=== PATIENT | female | born 1975 | race African-American/Black ===

== ENCOUNTER 2016-07-15 09:33 | Inpatient (IN) | payer OTHER ==
[~2016-07-15] VITALS: Ht 167.6 cm; Wt 111.8 kg
[~2016-07-15 09:33] MED LIST: ABILIFY5 M1 PO; LEXAPRO10 M1 PO
--- NOTE | 2016-07-15 09:37 | NUR ---
PT NELSON FROM IOP FOR +SI. PT STATES WEDNESDAY SHE DROVE HERSELF TO A HOTEL AND WANTED TO KILL HERSELF WITH A KNIFE. PT STATES SHE DID NOT BUY THE KNIFE. PT DENIES HI, DRUG OR ETOH USE. PT CURRENTLY ON DEPRESSION MEDS FOR THE PAST 5 YEARS. PT WANDED BY SECURITY PLACED IN PAPER SCRUBS. SITTER AT DOOR.
--- NOTE | 2016-07-15 09:58 | ED MVC/FALL/TRAUMA COMPLAINT ---
History of Present Illness General Chief Complaint: Psychiatric Related Complaint Stated Complaint: BIBA PSYCH EVAL Vital Signs & Intake/Output Vital Signs & Intake/Output Vital Signs Date Time Temp Pulse Resp B/P Pulse O2 O2 Flow FiO2 Ox Delivery Rate 07/15 953 98.3 95 22 113/71 96 Room Air 07/15 936 97 Allergies Coded Allergies: NO KNOWN ALLERGIES (07/15/16) Reconcile Medications Aripiprazole (Abilify) 5 MG TABLET 1 TAB PO DAILY depression Escitalopram Oxalate (Lexapro) 10 MG TABLET 1 TAB PO DAILY depression Triage Note: PT BIBA FROM [facility] FOR +SI. PT STATES WEDNESDAY SHE DROVE HERSELF TO A HOTEL AND WANTED TO KILL HERSELF WITH A KNIFE. PT STATES SHE DID NOT BUY THE KNIFE. PT DENIES HI, DRUG OR ETOH USE. PT CURRENTLY ON DEPRESSION MEDS FOR THE PAST 5 YEARS. PT WANDED BY SECURITY PLACED IN PAPER SCRUBS. SITTER AT DOOR : No Patient currently breastfeeds: No Past History Travel History Traveled to [place] past 21 day No Medical History Psychiatric: depression Surgical History Surgical History: SEE BELOW Psychosocial History Who do you live with Friend What is your primary language Kinyarwanda Tobacco Use: Current Daily Use Daily Tobacco Use Amount/Type: => 5 Cigarettes daily ETOH Use: denies use Illicit Drug Use: denies illicit drug use Progress Plan of Care: Orders Procedure Date/time Status URINE DRUGS OF ABUSE 07/15 936 Active ETHANOL 07/15 936 Active COMPREHENSIVE METABOLIC PANEL 07/15 936 Active CBC WITHOUT DIFFERENTIAL 07/15 936 Active Departure Departure Condition: Stable Referrals: PATIENT HAS NO PRIMARY CARE DR (PCP/Family) Departure Forms: Customer Survey General Discharge Information
--- NOTE | 2016-07-15 10:02 | ED PSYCHIATRIC COMPLAINT ---
History of Present Illness General Chief Complaint: Psychiatric Related Complaint Stated Complaint: BIBA PSYCH EVAL Source: patient Exam Limitations: no limitations Allergies Coded Allergies: NO KNOWN ALLERGIES (07/15/16) Triage Note: PT BIBA FROM [facility] FOR +SI. PT STATES WEDNESDAY SHE DROVE HERSELF TO A HOTEL AND WANTED TO KILL HERSELF WITH A KNIFE. PT STATES SHE DID NOT BUY THE KNIFE. PT DENIES HI, DRUG OR ETOH USE. PT CURRENTLY ON DEPRESSION MEDS FOR THE PAST 5 YEARS. PT WANDED BY SECURITY PLACED IN PAPER SCRUBS. SITTER AT DOOR Triage Nurses Notes Reviewed? yes : No Patient currently breastfeeds: No HPI: This patient is a 40 year old female with a past medical history including depression who presented for evaluation of suicidal ideation. She reported that she started feeling suicidal when her menses began on 07/09/16. She reported that she has had thoughts of "slitting my wrists." She reported that she has attempted suicide this way in the past. She denied any HI. She denied any alcohol or illicit drug use. She patient reported she currently has bronchitis being treated with Amoxicillin. She denied any chest pain, abdominal pain, fevers, chills, or any other associated symptoms. (DEEP MARIANO,MATHIEU) Vital Signs & Intake/Output Vital Signs & Intake/Output Vital Signs Date Time Temp Pulse Resp B/P Pulse O2 O2 Flow FiO2 Ox Delivery Rate 07/17 0731 96.0 72 122/72 07/16 1159 79 145/76 07/16 0852 96.9 73 136/72 Reconcile Medications Albuterol Sulfate (Proair Hfa) 90 MCG HFA.AER.AD SHORTNESS OF BREATH (Reported) Albuterol Sulfate (Proair Hfa) 90 MCG HFA.AER.AD 2 PUF INH Q4 HRS NEEDED PRN SHORTNESS OF BREATH (Reported) Amoxicillin 875 MG TABLET 1 TAB PO BID ANTIBIOTIC, INFECTION (Reported) Aripiprazole (Abilify) 10 MG TABLET 1 TAB PO DAILY MENTAL HEALTH (Reported) Escitalopram Oxalate 20 MG TABLET 1 TAB PO DAILY MENTAL HEALTH (Reported) (BRETT JOSE,ANDREA) Past History Travel History Traveled to [place] past 21 day No Medical History Any Pertinent Medical History? see below for history Psychiatric: depression Surgical History Surgical History: SEE BELOW Psychosocial History Who do you live with Friend What is your primary language Chinese Tobacco Use: Current Daily Use Daily Tobacco Use Amount/Type: => 5 Cigarettes daily ETOH Use: denies use Illicit Drug Use: denies illicit drug use Family History Hx Contributory? No (MATHIEU ADAME PA-C) Review of Systems Review of Systems Constitutional: Reports: no symptoms. EENTM: Reports: no symptoms. Respiratory: Reports: see HPI. Cardiovascular: Reports: no symptoms. GI: Reports: no symptoms. Genitourinary: Reports: no symptoms. Musculoskeletal: Reports: no symptoms. Skin: Reports: no symptoms. Neurological/Psychological: Reports: see HPI. 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 Neck: Supple Back: Normal gait Cardiovascular: Regular rate and rhythm with no murmurs, rubs, gallops Respiratory: Scattered wheezes in the lung apices. No rhonchi or rales Extremity: Normal and equal pulses Neuro: Alert oriented x3, cranial nerves II through XII grossly intact. Skin: No appreciable rash on exposed skin, skin is warm and dry. Psych: Mood and affect is flat SAD PERSONS Done? yes (MATHIEU ADAME PA-C) Progress Differential Diagnosis: drug intoxication, drug overdose, drug withdrawal, electrolyte abnormality, encephalitis, hypothyroidism, major depressive disorder (MATHIEU ADAME PA-C) Plan of Care: Orders Procedure Date/time Status INIT HSP (30 MIN) 07/16 UNK Complete Current Medications Sig/Fatmata Start time Last Medication Dose Stop Time Status Admin Acetaminophen 650 MG Q6P PRN 07/15 1615 AC (Tylenol) Al Hydroxide/Mg 30 ML Q4-6 PRN PRN 07/15 1615 AC Hydroxide (Maalox Plus) Albuterol Sulfate 2 PUF Q6P PRN 07/15 1615 AC (Ventolin) Guaifenesin/ 10 ML Q6P PRN 07/15 1615 AC Dextromethorphan (Robitussin Dm) Magnesium Hydroxide 30 ML AT BEDTIME PRN 07/15 1615 AC (Milk Of Magnesia) Departure Departure Disposition: STILL A PATIENT Condition: Stable Clinical Impression Primary Impression: Depression Qualifiers: Depression Type: unspecified Qualified Code: F32.9 - Major depressive disorder, single episode, unspecified Referrals: PATIENT HAS NO PRIMARY CARE DR Departure Forms: Customer Survey General Discharge Information Psych Admission Note Psychiatric Admission: I have seen and evaluated GABRIELA CHOWDHURY. I have also reviewed all the pertinent lab results and diagnostic results. GABRIELA CHOWDHURY will be admitted to our inpatient Psychiatric unit for treatment and care. (MATHIEU ADAME PA-C) PA/INDUSTRIAL PSYCHOLOGY PROFESSOR Co-Sign Statement Statement: ED Attending supervision documentation- x I saw and evaluated the patient. I have also reviewed all the pertinent lab results and diagnostic results. I agree with the findings and the plan of care as documented in the PA's/INDUSTRIAL PSYCHOLOGY PROFESSOR's documentation. [] I have reviewed the ED Record and agree with the PA's/INDUSTRIAL PSYCHOLOGY PROFESSOR's documentation. [] Additions or exceptions (if any) to the PAs/INDUSTRIAL PSYCHOLOGY PROFESSOR's note and plan are summarized below: [] (ANDREA WEST MD) GABRIELA CHOWDHURY will be admitted to our inpatient Psychiatric unit for treatment and care. (MATHIEU ADAME PA-C) PA/INDUSTRIAL PSYCHOLOGY PROFESSOR Co-Sign Statement Statement: ED Attending supervision documentation- x I saw and evaluated the patient. I have also reviewed all the pertinent lab results and diagnostic results. I agree with the findings and the plan of care as documented in the PA's/INDUSTRIAL PSYCHOLOGY PROFESSOR's documentation. [] I have reviewed the ED Record and agree with the PA's/INDUSTRIAL PSYCHOLOGY PROFESSOR's documentation. [] Additions or exceptions (if any) to the PAs/INDUSTRIAL PSYCHOLOGY PROFESSOR's note and plan are summarized below: [] (ANDREA WEST MD)
--- NOTE | 2016-07-15 10:25 | NUR ---
URINE TRIO SENT
--- NOTE | 2016-07-15 10:31 | ED PSY CRISIS COLLATERAL NOTE ---
Collateral Note Collateral Note Family/Inform/Alfredito Contacts: The following was written by Out pt clinician Kimberly Duran LCSW: I'm sending Aranza Pederson is 40yo AA female, Dx MDD (think maybe Bipolar?) to the ED, she had a serious plan to kill herself in hotel room on Thursday 07/13 was going to buy a knife. She didn't make attempt. She is very depressed, suicidal. 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 She stated immediate trigger to SI and plan was --- "I lost a poetry reading competition at the [employer] on Wednesday." She is impulsive and has prior attempts none since 2006. Aranza has Bronchitis - and she is taking amoxicillin since . 07/09. She is on Lexapro 20mg and Abilify 10mg. She saw Lopez Adames APRN 2x since started at [facility] 2015. Lopez Adames APRN called crisis as well and reported the following: He informed that he has met with pt 2x so far. She has a hx of MDD but are considering the possibility that she may have a dx of Bipolar given her impulsive hx. Pt impulsively recently moved to [place] from [place]. She was off her meds when she arrived. Lopez started her on new meds and pt discontinued the meds on her own because she wanted to get back on her old meds. 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 She has some cluster B traits as at times she presents superficially. He also reported the same as Kimberly noted above.
[2016-07-15 10:47] LABS: ABSOLUTE BASOPHIL COUNT 0.1 /CUMM (0.0-0.2); ABSOLUTE EOSINOPHIL COUNT 0.2 /CUMM (0.0-0.7); ABSOLUTE GRANULOCYTE CT 3.4 /CUMM (1.4-6.5); ABSOLUTE LYMPH COUNT 3.2 /CUMM (1.2-3.4); ABSOLUTE MONOCYTE COUNT 0.4 /CUMM (0.10-0.60); BASOPHIL % 0.9 % (0.0-2.0); EOSINOPHIL % 2.3 % (0-5); GRANULOCYTE % 47.1 % (42.2-75.2); HEMATOCRIT 36.2 % (37-47); MEAN CORPUSCULAR HGB 25.1 PG (27.0-31.0); MEAN CORPUSCULAR HGB CONC 32.6 G/DL (33.0-37.0); MEAN CORPUSCULAR VOLUME 77.1 FL (81.0-99.0); MEAN PLATELET VOLUME 7.9 FL (7.4-10.4); PLATELET COUNT 253 /CUMM (130-400); RBC DISTRIBUTION WIDTH 17.8 % (11.5-14.5); RED BLOOD CELL CT 4.69 /CUMM (4.20-5.40); WHITE BLOOD CELL COUNT 7.3 /CUMM (4.8-10.8)
--- NOTE | 2016-07-15 12:30 | NUR ---
SLEEPING, RR WNL.
[2016-07-15] MEDS ORDERED: ESCITALOPRAM OX20 MG PO (12:45)
[2016-07-15] MEDS ORDERED: ABILIFY10 M1 PO (12:45)
[2016-07-15] MEDS ORDERED: AMOXICILLIN875 M1 PO (12:46)
--- NOTE | 2016-07-15 13:05 | NUR ---
SITTING UP, EATING LUNCH. AWAITING CRISIS. Informed waiting has been performed.
--- NOTE | 2016-07-15 14:30 | NUR ---
CONTINUES TO AWAIT CRISIS EVAL. Informed waiting has been performed.
--- NOTE | 2016-07-15 15:12 | NUR ---
THIS RN NOW ASSUMING CARE OF PT.
--- NOTE | 2016-07-15 15:51 | ED PSYCH CRISIS CONSULTATION ---
Crisis Consult Basic Assessment Date of Consult: 07/15/16 Responsible Person/Accompanied By: self Insurance Authorization: Insurance #1: Insurance name: PHYLLIS Aguilar C&A Phone number: Policy number: [id number] Group number: Authorization number: ED Provider: Patient's ED Provider: MATHIEU ADAME PA-C Primary Care Physician: Patient's PCP: BASIL FRIEDMAN MD PCP's Current Psychiatrist: Lopez Adames APRN Chief Complaint: Psychiatric Related Complaint Patient's Quote: "I was thinking about killing myself for the 9th, 10th, or 11th try." Present Illness: Pt is a 40yo female who was sent from out pt due to SI with plan to cut her wrists. Pt expresses that she has been struggling with Depression for the past 20 years. She reports that she has mad 9-11 suicide attempts by cutting het wrists, overdoses and putting a plastic bag over her head. Pt also reports a hx of multiple inpt psych admits with the most recent at [facility] in 2008. Pt identifies that her depression started increasing last week when she got her period. 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 Additionally, pt was very upset about loosing a poetry contest. She expressed that she used to be very good at poetry and no feels like she is no good at it. Pt reports that she has been so depressed that she has found it very difficult to function at work or even to get out of bed to get herself to go to work. Pt reports that her depression became so overwhelming on Wednesday that she went to a hotel and was going to get a knife to cut her wrists. Pt says that she has not been able to stop thinking about cutting her wrist since Wednesday, so she is reaching out for help because she does not want to have the intrusive suicidal thoughts anymore.Pt denies any HI or sx of psychosis. Pt reports that she sometimes has aggressive thoughts where she imagines having agreements with people. Pt reports increase in irritability, depressed mood, low energy, low motivation, and loss in interest in things that she used to enjoy. Pt reports that her sleep and appetite are fine. Pt presents as depressed and mildly irritable, articulate, and a witty/dry/sarcastic sense of humor. Pt expresses her motivation to want to feel better and would like to be admitted to [facility]. case reviewed with Dr. Brown of Psychiatry and pt will be admitted to [facility]. Patient's Address: [address] [place] [address] Other Phone Number: Who Do You Live With? Friend Family/Informants Interviewed: Lopez Adames and Kimberly Duran see collateral note Allergies - Coded Allergies: NO KNOWN ALLERGIES (07/15/16) Current Medications - Scheduled Medications Amoxicillin 875 MG TABLET 1 TAB PO BID ANTIBIOTIC, INFECTION #20 (Reported) Entered as Reported by JAKE SOTO on 07/15/16 1246 Aripiprazole (Abilify) 10 MG TABLET 1 TAB PO DAILY MENTAL HEALTH #10 ( Reported) Entered as Reported by JAKE SOTO on 07/15/16 1245 Escitalopram Oxalate 20 MG TABLET 1 TAB PO DAILY MENTAL HEALTH #30 (Reported) Entered as Reported by JAKE SOTO on 07/15/16 1245 Laboratory Results: Laboratory Tests 07/15/16 1033: Hemoglobin A1c Pending 07/15/16 1033: Anion Gap 9, Estimated GFR > 60, BUN/Creatinine Ratio 11.1, Glucose 135 H, Calcium 9.1, Total Bilirubin 0.4, AST 28, ALT 42, Alkaline Phosphatase 80, Total Protein 7.7, Albumin 4.0, Globulin 3.7, Albumin/Globulin Ratio 1.1, Triglycerides Pending, Cholesterol Pending, LDL Cholesterol, Calc Pending, HDL Cholesterol Pending, Cholesterol/HDL Ratio Pending, TSH Pending, CBC w Diff NO MAN DIFF REQ, RBC 4.69, MCV 77.1 L, MCH 25.1 L, RDW 17.8 H, MPV 7.9, Gran % 47.1, Lymphocytes % 43.5, Monocytes % 6.2, Eosinophils % 2.3, Basophils % 0.9, Absolute Granulocytes 3.4, Absolute Lymphocytes 3.2, Absolute Monocytes 0.4, Absolute Eosinophils 0.2, Absolute Basophils 0.1, PUBS MCHC 32.6 L, Serum Alcohol < 10.0 07/15/16 1025: Urine Opiates Screen < 100.00, Methadone Screen 64, Barbiturate Screen < 60, Ur Phencyclidine Scrn < 6.00, Amphetamines Screen < 100, U Benzodiazepines Scrn < 85, Urine Cocaine Screen < 50, Urine Cannabis Screen > 80.00 H Past History Past Medical History Psychiatric: depression Past Surgical History Surgical History: SEE BELOW Psychosocial History 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, engaging, participates in out pt tx, expressive Physical Limitations (Interventions): none reported Psychiatric Treatment History Psych Treatment Psychiatric Treatment Yes Inpatient Treatment Yes Outpatient Treatment Yes Location of Treatment Multiple, most reccent inpt was [facility] 2008, currently out pt Brian Reason for Treatment Depression Dates of Treatment multiple to current Response to Treatment variable Diagnosis by History: Depression, R/O bipolar, cluster B traits Substance Use/Abuse History Drug Use/Abuse 1 Substances Used/Abused Yes Substance Used/Abused Marijuana First Use age 17 Last Used today How much used/taken unknown How often few times a week For how long since age 17 Route of use smoke Drug Use/Abuse 2 Substances Used/Abused Yes Substance Used/Abused Alcohol First Use age 17 Last Used 2 days ago How much used/taken 1 mixed drink How often "not often" For how long sporadically since age 17 Route of use po Substance Abuse Treatment Substance Abuse Treatment Past Substance Abuse TX Yes Inpatient Treatment No Outpatient Treatment Yes Location of Treatment AA Reason for Treatment alcohol use Dates of Treatment over 10 years ago Response to Treatment good Current Mental Status Mental Status Orientation: Person, Place, Situation Affect: Broad, Depressed, Hopeless, Sad, Variable Speech: WNL Neuro-vegetative: Anhedonia, Concentration Poor, Energy Decreased, Helpless, Loss of Interest Appearance Appearance- Dress/Hygiene: well groomed, good eye contact Behaviors Thought Process: WNL Thought Content: WNL Memory: WNL Insight: WNL SI/HI Risk Assessment Past Suicidal Ideation/Attempts Yes Current Suicidal Ideation/Att Yes Past Homicidal Ideation/Att: No Current Homicidal Ideation/Attempts No Degree of Intent: Made Preparations, Plan Danger To: Self Gravely Disabled: Poor Impulse Control Risk Factors: access to lethal means, high anxiety/distress, history of suicide atmpts, SA/MH hospitalized, substance abuse, poor impulse control, limited support Lethality Ratin PTSD Checklist PTSD Done? patient declined ED Management Sitter: Yes Restraints: No DSM5/PS Stressors/Medical Prob Diagnosis' (DSM 5, Stressors, Medical): Unspecified Depression f32.9, Cannabis use d/o f12.20 Current GAF: 25 Comments: axis 2: cluster b traits axis 3: Bronchitis axis 4: social, family, and work stressors Departure Disposition Psych Medical Clearance Date: 07/15/16 Medically Cleared at: 1515 Time Started: 151 Time Ended: 1544 Psychiatrist Consulted: Elio Brown MD Date Disposition Established: 07/15/16 Time Disposition Established: 1544 Plan for Disposition - Modality: Inpatient Psychiatry Facility: [facility] Rationale for Disposition: safety and stabilization of sx Type of IP Admission: Voluntary Referrals BASIL FRIEDMAN MD (PCP/Family)
--- NOTE | 2016-07-15 16:17 | NUR ---
REPORT GIVEN TO GIRMA ON [facility].
--- NOTE | 2016-07-15 17:11 | NUR ---
PAPER WORK READY. DISTRIBUTION CALLED FOR TRANSPORT TO [facility].
--- NOTE | 2016-07-15 17:19 | NUR ---
1 VALUABLE BAG, 2 BELONGINGS BAG, NANDO HARPER, SECURITY AND TRANSPORT WITH PT TO [facility].
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
[2016-07-15 17:33] VITALS: BP 124/74
[2016-07-15] MEDS ORDERED: PROAIR HFA8.5 GM (18:56)
[2016-07-15] MEDS ORDERED: PROAIR HFA8.5 GM INH (18:58)
[2016-07-15 20:17] VITALS: BP 131/73
--- NOTE | 2016-07-15 21:10 | NUR ---
PT ADMITTED TO CPS FOR DEPRESSION WITH SI. PT PRESENTED WITH DEPRESSED AND IRRITABLE MOOD. AFFECT CONSTRICTED. BEHAVIOR COOPERATIVE. DURING INTERVIEW, PT ADMITTED TO SI, BUT DENIED PLAN TO ACT WHILE ON UNIT. SHE REPORTED SHE FEELS SAFE AND AGREED TO REPORT TO STAFF IF THOUGHTS BECOME OVERWHELMING OR BEGINS TO CONSIDER A PLAN. PT DENIED HI AND ALL HALLUCINATIONS. PT REPORTED THAT SHE RECENTLY HAS COME TO REALIZE THAT "EVERY MONTH" AROUND HER MENSES, SHE BECOMES "SUICIDAL." SHE HAS NOT YET DISCUSSED THIS WITH HER DOCTORS. MEDICAL HX INCLUDES GALL BLADDER REMOVAL IN 2014. PT CURRENTLY BEING TREATED FOR ACUTE BRONCHITIS. NO RESPIRATORY DISTRESS. VSS. NO SOMATIC C/O.
--- NOTE | 2016-07-16 04:15 | NUR ---
Patient slept well, no issues.
[2016-07-16 08:52] VITALS: BP 136/72
[2016-07-16 11:59] VITALS: BP 145/76
--- NOTE | 2016-07-16 12:02 | SOCIAL WORKER PROG NOTE PSYCH ---
Social Work Progress Note Progress Note Pt reports she thinks she has PMDD, due to the fact that she states 5 days out of every month are unmanegable and her mood unstable and sysle has been going on for 20 years, "how can I hold down a job, when I need 5 days off every month". Pt is tearful that her daughter is with her parents, she reports no DCF involvment, but is unclear as to whats going on wtih her family, that she is "not welcome at her parents home". Pt reports she had applied for disability and wants to try again. Her medications " are maxed out" and not helping with suicidal thoughts.
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
--- NOTE | 2016-07-16 14:00 | NUR ---
PT IS ISOLATIVE AND WITHDRAWN IN ROOM- IN BED FOR VAST MAJORITY OF SHIFT. PT HAS A FLAT AFFECT AND AN IRRITABLE EDGE. PT DENIES SI AT THIS TIME, NO COMPLAINTS OFFERED. PT HAS MINIMAL INTERACTION WITH PEERS AND STAFF. PT PRESENT ON UNIT FOR MEALS AND VITALS. PT IS REFUSING GROUPS. VITALS ARE STABLE, APPETITE IS GOOD.
--- NOTE | 2016-07-16 15:48 | History & Physical ---
General Information and HPI MD Statement: I have seen and personally examined GABRIELA CHOWDHURY and documented this H&P. The patient is a 40 year old F who presented with a patient stated chief complaint of depression. Source of Information: patient Exam Limitations: no limitations History of Present Illness: 60-year-old female with past medical history significant for depression, recently diagnosed with acute bronchitis and treated with inhaler as well as antibiotics who was admitted to Inpatient Psychiatry with worsening depression as well as suicidal ideation. Patient claims that her depression really gets worse as she moves closer towards the end of her menstrual cycle. She thinks that she has premenstrual syndrome. She wants to take oral contraceptives for this. She is currently on antidepressant which she says helps but then when she moves towards the later half of her menstrual cycle symptoms really get worse. She is recommending of cough and requesting a cough syrup. She is also requesting an inhaler. She denies any chest pain, abdominal pain, nausea, vomiting, headache, fevers or chills. Allergies/Medications Allergies: Coded Allergies: NO KNOWN ALLERGIES (07/15/16) Home Med list Albuterol Sulfate (Proair Hfa) 90 MCG HFA.AER.AD SHORTNESS OF BREATH (Reported) Albuterol Sulfate (Proair Hfa) 90 MCG HFA.AER.AD 2 PUF INH Q4 HRS NEEDED PRN SHORTNESS OF BREATH (Reported) Amoxicillin 875 MG TABLET 1 TAB PO BID ANTIBIOTIC, INFECTION (Reported) Aripiprazole (Abilify) 10 MG TABLET 1 TAB PO DAILY MENTAL HEALTH (Reported) Escitalopram Oxalate 20 MG TABLET 1 TAB PO DAILY MENTAL HEALTH (Reported) Past History Travel History Traveled to [place] past 21 day No Medical History Neurological: NONE EENT: NONE Cardiovascular: NONE Respiratory: bronchitis Gastrointestinal: NONE Hepatic: NONE Renal: NONE Musculoskeletal: NONE Psychiatric: depression Endocrine: NONE Blood Disorders: NONE Cancer(s): NONE YARN SALVAGER/Reproductive: NONE History of MRSA: No History of VRE: No History of CDIFF: No Isolation History: Standard Surgical History Surgical History: SEE BELOW Past Family/Social History Family History Relations & Conditions if any MOTHER Relation not specified for: FH: diabetes mellitus Psychosocial History Where do you live? 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 EENTM: Reports: see HPI. Cardiovascular: Reports: see HPI. Respiratory: Reports: see HPI. GI: Reports: see HPI. Genitourinary: Reports: see HPI. Musculoskeletal: Reports: see HPI. Skin: Reports: see HPI. Neurological/Psychological: Reports: see HPI. Exam & Diagnostic Data Last 24 Hrs of Vital Signs/I&O Vital Signs Date Time Temp Pulse Resp B/P Pulse O2 O2 Flow FiO2 Ox Delivery Rate 07/16 1159 79 145/76 07/16 0852 96.9 73 136/72 07/15 2016 96.3 81 131/73 07/15 1733 97.4 86 124/74 Intake & Output 07/16 1600 07/16 0800 07/16 0000 Intake Total Output Total Balance Patient 246 lb Weight Physical Exam General Appearance Alert, Oriented X3, Cooperative Skin No Rashes HEENT PERRLA Neck Supple Cardiovascular Regular Rate, Normal S1, Normal S2 Lungs Clear to Auscultation Abdomen Normal Bowel Sounds, Soft, No Tenderness Neurological Cranial Nerves II through XII: intact Extremities No Edema Last 24 Hrs of Labs/[place]: Laboratory Tests 07/15 07/15 07/15 1033 1033 1025 Chemistry Sodium (137 - 145 mmol/L) 138 Potassium (3.5 - 5.1 mmol/L) 4.3 Chloride (98 - 107 mmol/L) 103 Carbon Dioxide (22 - 30 mmol/L) 25 Anion Gap (5 - 16) 9 BUN (7 - 17 mg/dL) 10 Creatinine (0.5 - 1.0 mg/dL) 0.9 Estimated GFR (>60 ml/min) > 60 BUN/Creatinine Ratio (7 - 25 %) 11.1 Glucose (65 - 99 mg/dL) 135 H Hemoglobin A1c Pending Calcium (8.4 - 10.2 mg/dL) 9.1 Total Bilirubin (0.2 - 1.3 mg/dL) 0.4 AST (14 - 36 U/L) 28 ALT (9 - 52 U/L) 42 Alkaline Phosphatase (<127 U/L) 80 Total Protein (6.3 - 8.2 g/dL) 7.7 Albumin (3.5 - 5.0 g/dL) 4.0 Globulin (1.9 - 4.2 gm/dL) 3.7 Albumin/Globulin Ratio (1.1 - 2.2 %) 1.1 Triglycerides (<150 mg/dL) 432 H Cholesterol (<200 MG/DL) 296 H LDL Cholesterol, Calc (65 - 129 mg/dL) ND HDL Cholesterol (40 - 60 mg/dL) 27 L Cholesterol/HDL Ratio (0.00 - 4.23 %) 11 H TSH (0.270 - 4.200 uIU/mL) 1.020 Hematology CBC w Diff NO MAN DIFF REQ WBC (4.8 - 10.8 /CUMM) 7.3 RBC (4.20 - 5.40 /CUMM) 4.69 Hgb (12.0 - 16.0 G/DL) 11.8 L Hct (37 - 47 %) 36.2 L MCV (81.0 - 99.0 FL) 77.1 L MCH (27.0 - 31.0 PG) 25.1 L RDW (11.5 - 14.5 %) 17.8 H Plt Count (130 - 400 /CUMM) 253 MPV (7.4 - 10.4 FL) 7.9 Gran % (42.2 - 75.2 %) 47.1 Lymphocytes % (20.5 - 51.1 %) 43.5 Monocytes % (1.7 - 9.3 %) 6.2 Eosinophils % (0 - 5 %) 2.3 Basophils % (0.0 - 2.0 %) 0.9 Absolute Granulocytes (1.4 - 6.5 /CUMM) 3.4 Absolute Lymphocytes (1.2 - 3.4 /CUMM) 3.2 Absolute Monocytes (0.10 - 0.60 /CUMM) 0.4 Absolute Eosinophils (0.0 - 0.7 /CUMM) 0.2 Absolute Basophils (0.0 - 0.2 /CUMM) 0.1 PUBS MCHC (33.0 - 37.0 G/DL) 32.6 L Toxicology Urine Opiates Screen (>2000 NG/ML) < 100.00 Methadone Screen (>300 NG/ML) 64 Barbiturate Screen (>200 NG/ML) < 60 Ur Phencyclidine Scrn (>25 NG/ML) < 6.00 Amphetamines Screen (>1000 NG/ML) < 100 U Benzodiazepines Scrn (>200 NG/ML) < 85 Urine Cocaine Screen (>300 NG/ML) < 50 Urine Cannabis Screen (>50 NG/ML) > 80.00 H Serum Alcohol (<10 MG/DL) < 10.0 Assessment/Plan Assessment: 40-year-old female with history of depression who is admitted with worsening depression as well as suicidal ideation. Recently treated for acute bronchitis with antibiotic and inhalers. Continue Augmentin and finish the course. I will add Robitussin for cough. Patient has albuterol inhaler ordered as needed. I will leave the psych management up to psychiatry. Patient is a current smoker, continue nicotine patch. As Ranked By This Provider Problem List: 1. Depression Qualifiers Depression Type: unspecified Qualified Code: F32.9 - Major depressive disorder, single episode, unspecified 2. Acute bronchitis 3. Suicidal ideation Miscellaneous Miscellaneous Documentation Attending Case Discussed With: Yolanda Epps MD Primary Care Physician: BASIL FRIEDMAN MD Patient sees these Specialists None Level of Patient Care: NELDA Bennett
--- NOTE | 2016-07-16 22:10 | NUR ---
ISOLATIVE AND WITHDRAWN- PT NOT COMPLIANT WITH VS BUT WAS WILLING TO COME OUT FOR HER NIGHTTIME MEDICATIONS. 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 PT DOES NOT ENGAGE WITH PEERS OR STAFF. PT CURRENTLY IN ROOM SLEEPING.
[2016-07-17 07:31] VITALS: BP 122/72
--- NOTE | 2016-07-17 12:23 | CP SOUTH PROGRESS NOTE PSYCH ---
Psych (Inpt) Progress Note Progress Note Include the following elements, when applicable: Involvement in the active treatment of the patient with behavioral observations of the patient and the patient's response to the treatment. Review of the ongoing treatment process in the context of the treatment plan. Indication of how multi-disciplinary staff members are carrying out the treatment plan. Plans for future interventions and recommendations for revision of the treatment plan. Liaison with other physicians/providers. Progress Note: [I discussed this patient's progress to date, current mental status, treatment process in the context of the treatment plan, and discharge planning with staff/ team in the daily morning inpatient team meeting. I also met with the patient myself in individual session.] SUBJECTIVE: "I'm feeling pretty good today." OBJECTIVE: Current Medications Sig/Fatmata Start time Last Medication Dose Route Stop Time Status Admin Acetaminophen 650 MG Q6P PRN 07/15 1615 AC PO Al Hydroxide/Mg 30 ML Q4-6 PRN PRN 07/15 1615 AC Hydroxide PO Albuterol Sulfate 2 PUF Q6P PRN 07/15 1615 AC INH Amoxicillin/ 875 MG Q12 07/15 2200 AC 07/17 Clavulanate Potassium PO 07/21 1001 0752 Aripiprazole 15 MG 0800 07/17 0800 AC 07/17 PO 0752 Aripiprazole 10 MG DAILY 07/16 1000 DC 07/16 PO 1144 Escitalopram Oxalate 20 MG DAILY 07/16 1000 AC 07/17 PO 0752 Guaifenesin/ 10 ML Q6P PRN 07/15 1615 AC Dextromethorphan PO Magnesium Hydroxide 30 ML AT BEDTIME PRN 07/15 1615 AC PO Nicotine 2 MG Q4P PRN 07/16 1230 AC 07/17 PO 1134 Nicotine 14 MG DAILY 07/16 1000 AC 07/17 TOP 0752 Vital Signs Date Time Temp Pulse Resp B/P Pulse O2 O2 Flow FiO2 Ox Delivery Rate 07/17 0731 96.0 72 122/72 ASSESSMENT: Met with patient today, she was A&Ox4. Speech was normal in rate, tone and volume. Mood "pretty good." Affect appeared superficially bright. Reported having a "civil" phone conversation this morning with her mother. Reported attending and participating in groups. Reported sleep and appetite were good. Denied feeling hopeless, worthless, helpless, or guilty. Depression: 4/10 (10 being the worst). Anxiety: 0/10 (10 being the worst). She denied passive/active suicidal ideation, plans and intent. Denied homicidal ideation. There was no evidence of psychotic thought process, delusions, or paranoia. She denied AVH. Energy was "good." Thought process was linear and goal directed. Thought content was appropriate. Insight/judgement were fair. She reported tolerating increase in Abilify from 10mg to 15mg QAM well. She denied untoward medication effects, akathesia, and symptoms of movement disorder. AIMS=0. She was agreeable to continue taking. PLAN: 1. Continue current medications. 2. Continue monitoring patient on unit for safety, suicidal ideation and mood. 3. Dispo planning per primary team.
[2016-07-17 12:44] VITALS: BP 143/75
--- NOTE | 2016-07-17 14:10 | NUR ---
PT IS COMPLIANT AND COOPERATIVE. MOOD IS STABLE WITH A FULL RANGE OF AFFECT. PT CAN BE IRRITABLE AT TIMES; USING A LOT OF SARCASM. PT EXPRESSES NOT WANTING TO BE HERE AND DOESN'T WANT TO WORK ON HERSELF. PT DENIES SI AT THIS TIME, NO COMPLAINTS OFFERED. PT IS PRESENT IN THE COMMUNITY AND INTERACTING WITH PEERS AND STAFF. PT IS ATTENDING SOME GROUPS. VITALS ARE STABLE, APPETITE IS GOOD.
[2016-07-17 16:26] VITALS: BP 131/80
--- NOTE | 2016-07-17 16:43 | SOCIAL WORKER PROG NOTE PSYCH ---
Social Work Progress Note Progress Note Aranza appeared to be having a good day today. Attended groups and was social with peers. Teaching others the card game Spades. She talked about her difficulty with having more suicidal thoughts as of recent. She didn't have any today. She discussed the environmental stressors that she is dealing with, having to live with her friend and her 4 children. She is sleeping on an inflatable mattress and sharing a bedroom with her friend. She states that the house is dirty and it's very chaotic and noisy there. She feels that these conditions are contributing to her mental state at this time. She doesn't feel that there is any other option for housing. 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 She reports that she has lost several jobs due to her depression and inability to function during the day. She is looking at applying for disability again. I gave her some information on a resource that could be helpful in applying. She talked about her relationship with her parents and how she feels very rejected by them and states that they just "don't like me". She reports that she attempts to do things with them and that they constantly reject her and just say "no". Her daugther lives there and is happy there. There is no DCF involvement. Aranza seems fine with her daughter living there and states she needs to figure herself out and get her life together. We talked about aftercare from the hospital. She is currently in outpatient treatment with Brian. She initially stated she wants to remain at that level of care and doesn't care for IOP, stating she has done plenty of IOP' s and could probably run one herself. I continued to talk with her and later in the conversation, she was thinking more about it and the benefits to her. She stated she would think about it over the weekend. When asked about having a family meeting, she said that she didn't think her family will be part of it and that she could ask. She doesn't feel that her family really wants to be a support to her at this time. She has a relationship with her sister, but said her sister doesn't know what to say to her or says the "wrong things" when she tells her she feels depressed or is having a bad day. Encouraged her to try and have a good weekend and we will talk more on Wednesday.
--- NOTE | 2016-07-17 16:43 | SOCIAL WORKER TX PLAN PSYCH ---
Treatment Plan - Please Document: - Evidence that there is ongoing collaboration between - the patient and the interdisciplinary team, - including the patient's active participation and - responsibility for engaging in the treatment regimen, - and that the treatment plan is individualized and - relevant to the patient's conditions. - Treatment plan should reflect documentation indicating - that all active therapeutic efforts are included. 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, engaging, participates in out pt tx, expressive Physical Limitations (Interventions): none reported Patient Identified Trmt Goals: "I want to feel better" Discharge Plan: [facility] Problem/Goals #1 Problem #1: suicidal ideation Goal (Short Term): Patient will attend 75% of groups Goal (Data Management Associate): Patient will be able to verbalize not wanting to hurt herself Interventions: Patient will be offered medication management with the URBAN GARDENING SPECIALIST, groups on symptom management, coping skills, focus group, goals group, art therapy, accupuncture, spirituality. Kaitara Taraka will explore triggers to SI and help identify coping mechanisms and community resources. Kaitara Taraka will help assist in setting up aftercare. DSM5/PS Stressors/Medical Prob Diagnosis' (DSM 5, Stressors, Medical): Unspecified Depression f32.9, Cannabis use d/o f12.20 Current GAF: 25 Treatment Team - Responsibilities of members of the treatment team include: - Medication Management- MD or URBAN GARDENING SPECIALIST - Medication Administration and Monitoring- Nurse - Group Therapy- Occupational Therapist - 1:1 Therapy,Disch Planning,family involvement-Kaitara Taraka
[2016-07-17 19:36] VITALS: BP 112/77
--- NOTE | 2016-07-17 22:15 | NUR ---
PT HAS BEEN COOPERATIVE WITH STAFF AND PEERS, COMPLIANT WITH UNIT RULES, AND HAS BEEN CALM THROUGHOUT EVENING. PT HAS BEEN IN MILIEU SOCIALIZING WITH OTHERS. PT MOOD IS STABLE, AFFECT NIS EUTHYMIC TO FULL RANGE, COMMUNCIATION IS NORMAL, AND APPETITE IS NORMAL. PT DENIES SI AT THIS TIME.
[2016-07-18 08:13] VITALS: BP 130/81
[2016-07-18 11:51] VITALS: BP 125/80
--- NOTE | 2016-07-18 13:56 | NUR ---
PT IS OUT IN COMMUNITY INTERACTING WELL WITH STAFF AND PEERS. PT IS VERY SOICAL TALKING AND PLAYING GAMES WITH PEERS. PT SAID SHE IS IN A IRRITABLE MOOD AND FEELS VERY CLOSE TO SNAPPING AT SOMEONE. JUST WORDS NOT IN A PHYSICAL WAY. PT IS ATTENDING GROUPS. PT DENIES NENA IBARRA
--- NOTE | 2016-07-18 14:16 | CP SOUTH PROGRESS NOTE PSYCH ---
Psych (Inpt) Progress Note Progress Note Include the following elements, when applicable: Involvement in the active treatment of the patient with behavioral observations of the patient and the patient's response to the treatment. Review of the ongoing treatment process in the context of the treatment plan. Indication of how multi-disciplinary staff members are carrying out the treatment plan. Plans for future interventions and recommendations for revision of the treatment plan. Liaison with other physicians/providers. Progress Note: Notes reviewed, progress discussed with nursing staff. Interviewed patient individually this morning. She states, "I feel really angry and irritable this morning." Upon further review, marlena reports smoking up to or more than 2 packs daily and is reporting severe nicotine cravings. She asked to increase her NRT, and perhaps add another as needed medication for acute agitation. That being said, she is in good behavioral control, denies SI or HI, feels her mood is improving to some extent. Denies auditory or visual hallucinations. MSE: Appropriately groomed -[place]amb[place] female dressed in hospital scrubs. Cooperative with interview, with good eye contact. No psychomotor agitation or retardation noted. Speech was mildly pressured, fully interruptible, and otherwise within normal limits. Mood was "angry and irritable", affect was mildly irritable, slightly labile, thought process was mildly perseverative, content regarding irritability, denies SI or HI. Denies perceptual disturbances. Cognition was grossly intact. Insight and judgment were fair Vitals reviewed and were within normal limits. No new laboratory results today. A/P: Emergence of subjective irritability and anger symptoms, that most likely represent undertreated nicotine withdrawal. Will increase her topical nicotine patch 21 mg daily as well as increase the frequency of availability of nicotine gum. Will also add Zyprexa 2.5 mg when necessary in case of continued agitation , though would expect increased NRT to be adequate for these irritability symptoms. Otherwise continue present management as per primary team.
[2016-07-18 20:01] VITALS: BP 129/78
--- NOTE | 2016-07-18 23:34 | NUR ---
PATIENT MOOD LABILE AT TIMES; INTERACTING WELL WITH PEERS, BUT GOT ANGRY WITH A PEER VERY SUDDENLY WHEN PLAYING A GAME AND WALKED AWAY TO "COOL OFF"; SHE DID NOT ATTEND WRAP UP MEETING; SHE DENIES S/I AT THIS TIME.
--- NOTE | 2016-07-19 05:58 | NUR ---
PATIENT SLEPT ALL NIGHT.
[2016-07-19 07:40] VITALS: BP 139/74
--- NOTE | 2016-07-19 10:44 | CP SOUTH PROGRESS NOTE PSYCH ---
Psych (Inpt) Progress Note Progress Note Include the following elements, when applicable: Involvement in the active treatment of the patient with behavioral observations of the patient and the patient's response to the treatment. Review of the ongoing treatment process in the context of the treatment plan. Indication of how multi-disciplinary staff members are carrying out the treatment plan. Plans for future interventions and recommendations for revision of the treatment plan. Liaison with other physicians/providers. Progress Note: Notes reviewed, progress discussed with nursing staff. Interviewed patient individually this morning. States that increase in nicotine replacement therapy as well as availability of small dose of Zyprexa yesterday dramatically improved her state of irritability and agitation. She does report that she had 1 small verbal altercation with another patient on the unit that was quickly stopped. This morning she says her mood is good, she feels optimistic, denies SI or HI, denies perceptual disturbances. She denies any other complaints at this time. MSE: Appropriately groomed -[place]awian female dressed in hospital scrubs. Gone girl by Carrie Ortiz at her bedside. Cooperative with interview, with good eye contact. No psychomotor agitation or retardation noted. Speech was plentiful otherwise within normal limits. Mood was "doing a lot better", affect was euthymic, non-labile, thought process was logical and linear, denies SI or HI. Denies perceptual disturbances. Cognition was grossly intact. Insight and judgment were fair Vitals reviewed and were within normal limits. No new laboratory results today. A/P: Improvement in irritability symptoms, which likely represented nicotine withdrawal. Will continue nicotine replacement therapy at current doses, continue Zyprexa 2.5 mg when necessary for irritability, though suggest this is ultimately removed to minimize emergence of neuroleptic related side effects. Otherwise continue present management as per primary team.
[2016-07-19 12:23] VITALS: BP 119/78
--- NOTE | 2016-07-19 14:35 | NUR ---
OUT IN COMMUNITY. LITTLE LOUD AND BRASSY AT TIMES. INTERACTS WELL WITH MOST OF HER PEERS. HAS DEMONSTRATED TOLERANCE TO INTRUSION OF SPACE BY PSCHOTIC PEER. SPENDS SOME TIME CROTCHETING WHICH SHE DECRIBES RELAXING. DENIED THOUGHTS OF SELF HARM WHEN ASKED.
[2016-07-19 15:40] VITALS: BP 110/76
--- NOTE | 2016-07-19 18:29 | NUR ---
NOTIFIED HOD Dr. JOY OF EXPIRING ANTIBIOTIC. 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 WOULD NEED TO BE EXTENDED 1 DAY. PATIENT REPORTS IMPROVED BUT NOT COMPLETELY WELL.
--- NOTE | 2016-07-19 19:54 | NUR ---
PT. IN BED MOST OF THE EVENING DID NOT COME OUT FOR VITALS.
--- NOTE | 2016-07-20 04:31 | NUR ---
SLEPT WELL AWAKE 0400 REQUESTING ZYPREXA AND ADMINISTERED.
[2016-07-20 07:39] VITALS: BP 116/75
--- NOTE | 2016-07-20 09:05 | SOCIAL WORKER PROG NOTE PSYCH ---
Social Work Progress Note Progress Note Aranza came to my office and asked for the [place] [employer] office phone number. I found this for her and gave it to her. When asked how her weekend was she said "boring". Amanda Patel APRN and I met with Aranza together. Aranza reports that she is feeling better and is ready to be discharged today. Denies any SI. Is willing to go to [facility] [place] for aftercare treatment, although slightly ambivalent. She does identify some of the benefits. She talks about her parents being a large part of her stress. Her Mom is currently on vacation. When asked if she would have a family meeting with her Dad or her roommate, she states she really doesn't want to involve them in her treatment. Discussed discharge today and there really doesn't seem any reason for her to remain inpatient at this time. Aranza's car is across the street at the outpatient program. I was able to schedule her an intake for [facility] tomorrow at 9:30am. I talked with her about refraining from cannabis use if she wants to be in the mental health track. She stated she did not want to be in the dual track and she won't smoke.
--- NOTE | 2016-07-20 11:50 | CP SOUTH PROGRESS NOTE PSYCH ---
Psych (Inpt) Progress Note Progress Note Include the following elements, when applicable: Involvement in the active treatment of the patient with behavioral observations of the patient and the patient's response to the treatment. Review of the ongoing treatment process in the context of the treatment plan. Indication of how multi-disciplinary staff members are carrying out the treatment plan. Plans for future interventions and recommendations for revision of the treatment plan. Liaison with other physicians/providers. Progress Note: [I discussed this patient's progress to date, current mental status, treatment process in the context of the treatment plan, and discharge planning with staff/ team in the daily morning inpatient team meeting. I also met with the patient myself in individual session.] SUBJECTIVE: "I feel great." OBJECTIVE: Current Medications Sig/Fatmata Start time Last Medication Dose Route Stop Time Status Admin Acetaminophen 650 MG Q6P PRN 07/15 1615 AC PO Al Hydroxide/Mg 30 ML Q4-6 PRN PRN 07/15 1615 AC Hydroxide PO Albuterol Sulfate 2 PUF Q6P PRN 07/15 1615 AC INH Amoxicillin/ 875 MG Q12 07/15 2200 DC 07/19 Clavulanate Potassium PO 07/21 1001 2148 Aripiprazole 15 MG 0800 07/17 0800 AC 07/20 PO 0804 Escitalopram Oxalate 20 MG DAILY 07/16 1000 AC 07/20 PO 0804 Gabapentin 300 MG Q8P PRN 07/20 1315 AC 07/20 PO 1326 Guaifenesin/ 10 ML Q6P PRN 07/15 1615 AC 07/17 Dextromethorphan PO 2344 Magnesium Hydroxide 30 ML AT BEDTIME PRN 07/15 1615 AC PO Nicotine 2 MG Q1 NEEDED PRN 07/18 1045 AC 07/20 PO 0805 Nicotine 21 MG DAILY 07/18 1040 AC 07/20 TOP 0804 Olanzapine 2.5 MG Q4 HRS NEEDED PRN 07/18 1045 DC 07/20 PO 0415 Vital Signs Date Time Temp Pulse Resp B/P Pulse O2 O2 Flow FiO2 Ox Delivery Rate 07/20 1220 92 134/76 07/20 0739 96.7 93 116/75 07/19 1540 96 110/76 ASSESSMENT: Met with the patient today, on the date of discharge. Patient was A&Ox4. Speech was normal in rate, tone and volume. Affect was full-range, mood was "great!" She reported having a verbal altercation with another female patient over the weekend on unit over the outcome of a game they had been playing. She reported being able to manage this event by taking space away from patient and taking a prn of Zyprexa 2.5mg. Provided education on Zyprexa used concomitantly with Abilify and medication risks, given both being neuroleptic medications. Patient was agreeable to discontinuing prn Zyprexa, and reported improvement in mood since coping by taking space and processing in milieu groups. Patient reported feeling "100% better " since intitial [facility] admission. She reported depression of 0/10 (10 being the worst) and anxiety of 0/10 (10 being the worst). She denied feeling hopeless, helpless, worthless, or guilty. She denied urges or thoughts to self-harm. She denied active and passive suicidal ideation, plans and intent. She denied homicidal ideation. She stated and also believed she will not harm herself or others. She is future oriented to return home to live with her roommate, work towards applying for disability and attending [facility]. She identified protective factors of "my daughter" and "myself." She reported being motivated to abstain from cannabis use. She reported tolerating medications well and denied untoward medication effects. AIMS= 0. The patient reported feeling safe and ready for discharge. PLAN: 1. Discharge today to home and roommate. 2. F/u with IOP on 07/21/16 at 9:30AM. Pt verbalized understanding of instruction. 3. F/u with smoking Cessation Group on 07/22/16 at 4PM. Patient verbalized understanding of instruction. 4. All discharge medication prescriptions were printed and reviewed with/ provided to patient. 5. Abstain from all substances. 6. In the event of an emergency, call [phone]/go to nearest emergency department. Patient verbalized understanding of all instruction.
[2016-07-20 12:20] VITALS: BP 134/76
[2016-07-20] MEDS ORDERED: LEXAPRO20 M1 PO (13:24)
[2016-07-20] MEDS ORDERED: ABILIFY15 M1 PO (13:24)
[2016-07-20] MEDS ORDERED: NICOTINE PATCH1 EAC3 TOP (13:40)
--- NOTE | 2016-07-20 13:50 | DISCHARGE SUMMARY REPORT-PSYCH ---
Visit Information Visit Dates/Diagnosis' Admission Date: 07/15/16 Discharge Date: 07/20/16 Reason for Admission: Suicidal ideation Psy Discharge Primary Diag: Unspecified Depression Psy Discharge Secondary Diag: Cannabis use disorder, severe; R/O PTSD; R/O Premenstrual dysphoric disorder; R/O Unspecified bipolar disorder; Cluster B traits; Asthma; obesity Hospital Course Significant Lab Findings: Lab Cholesterol 296 MG/DL H 07/15/16 1033 Cholesterol/HDL Ratio 11 % H 07/15/16 1033 HDL Cholesterol 27 mg/dL L 07/15/16 1033 Hemoglobin A1c 6.7 H 07/15/16 1033 Triglycerides 432 mg/dL H 07/15/16 1033 Urine Cannabis Screen > 80.00 NG/ML H 07/15/16 1025 Course Complications: None. Consultations: The patient was seen for admission history and physical by Dr. Yolanad Epps. Please see her note for additional information. Allergies: Coded Allergies: NO KNOWN ALLERGIES (07/15/16) Hospital Course/TX Response: The patient was monitored on the unit for safety, suicidal ideation, and mood disorder. She participated in multimodal treatments on the unit. She refused trials of [place] and Depakote for mood stabilization. Tegretol was not offered as a trial, as the patient expressed a strong desire to get on oral contraceptive post-discharge from inpatient hospitalization. The patient elected to stay on Abilify, which was increased from 10mg daily to 15mg daily for mood stabilization. Lexapro 20mg daily was continued for depression/anxiety. Briefly during hospital course, the patient was temporarily provided with prn Zyprexa 2.5mg for anxiety/agitation which was quickly discontinued, as symptoms stabilized. Patient reported tolerating all medications well and denied untoward medication effects. During the hospital course, the patient's mood and affect improved. Suicidal ideation remitted. The patient would not allow for primary treatment team to facilitate a discharge meeting/phone conference with her family or roommate. She was agreeable to partake in [facility] IOP program, and an intake was scheduled for her on 07/21/16 at 9:30AM. The patient was in favor of discharge plan, and motivated to follow-up with recommended after care treatment plan. On the date of discharge, 07/20/16, the patient presented A&Ox4. Speech was normal in rate, tone and volume. Affect was full-range, mood was "great!" She reported having a verbal altercation with another female patient over the weekend on unit over the outcome of a game they had been playing. She reported being able to manage this event by taking space away from patient and taking a prn of Zyprexa 2.5mg. Provided education on Zyprexa used concomitantly with Abilify and medication risks, given both being neuroleptic medications. Patient was agreeable to discontinuing prn Zyprexa, and reported improvement in mood since coping by taking space and processing in milieu groups. Patient reported feeling "100% better " since intitial [facility] admission. She reported depression of 0/10 (10 being the worst) and anxiety of 0/10 (10 being the worst). She denied feeling hopeless, helpless, worthless, or guilty. She denied urges or thoughts to self-harm. She denied active and passive suicidal ideation, plans and intent. She denied homicidal ideation. She stated and also believed she will not harm herself or others. She is future oriented to return home to live with her roommate, work towards applying for disability and attending [facility]. She identified protective factors of "my daughter" and "myself." She reported being motivated to abstain from cannabis use. She reported tolerating medications well and denied untoward medication effects. AIMS= 0. The patient reported feeling safe and ready for discharge. Discharge HBIPS - Tobacco Use Treatment Offered Post DC Medications Offered: Script Given-See Med List Post DC Tobacco Treatment Plan: [facility] Tx Pgm Program Appt Date: 07/22/16 Program Appt Time: 1600 - EtOH/Drug Use D/O Treatment Offered Post DC Medications Offered: Med Not Indicated for D/O Post DC EtOH/SubAbuse TX Plan: Refused Post DC Tx Pgm Metabolic Screening - Screen if on a Neuroleptic Medication - Metabolic screening should include: - Blood Pressure, BMI, Glucose or Hgb A1c, & a - Lipid profile from within the past 365 days. Metabolic Screening () Not Applicable, patient not on a neuroleptic. OR ([X]) Patient on a neuroleptic(s) . Enter below results for Glucose or Hemoglobin A1C, and lipid panel if obtained during the last 365 days. BMI: Blood Pressure: 134/76 Laboratory Results (If applicable): Lab Cholesterol 296 MG/DL H 07/15/16 1033 Cholesterol/HDL Ratio 11 % H 07/15/16 1033 HDL Cholesterol 27 mg/dL L 07/15/16 1033 Hemoglobin A1c 6.7 H 07/15/16 1033 Triglycerides 432 mg/dL H 07/15/16 1033 Discharge Instructions General Discharge Information Discharge Medications: Discharge Medications- (Dose, route, freq, indication): HOME MEDICATION LIST START taking these NEW Home Medications: Escitalopram Oxalate Dose: ORAL, Every Morning for Qty: 14 Printed (Lexapro) 20 MG 20 Milligram anxiety/depression Refills: 0 TABLET Take 1 tablet by mouth every morning. Last Taken: 07/20 Time: 0800 Aripiprazole Dose: ORAL, DAILY @8 AM for Qty: 14 Printed (Abilify) 15 MG 15 Milligram mood stabilization Refills: 0 TABLET Take 1 tablet by mouth every morning. Last Taken: 07/20 Time: 0800 Nicotine (Nicotine Dose: On the skin, DAILY for Qty: 14 Printed Patch) 21 MG/24 HOUR 21 Milligram nicotine cessation Refills: 0 PATCH.TD24 Apply 1 patch (21mg) topically every morning and remove before bedtime. Last Taken: 07/20 Time: 0800 Discharge prescriptions for the above medications were printed, reviewed and provided with patient on 07/20/16. CONTINUE taking these Home Medications: Albuterol Sulfate Dose: , EVERY 4 HOURS (Proair Hfa) 90 MCG NEEDED as needed for HFA.AER.AD SHORTNESS OF BREATH NOT USED IN HOSPITAL STOP taking these DISCONTINUED Home Medications: Aripiprazole (Abilify) 10 MG Dose: ORAL, DAILY for MENTAL HEALTH TABLET 1 Tablet Reason Stopped: Per Doctor Decision Multiple Neuroleptics: ([X]) Not Applicable OR Document below three failed attempts at monotherapy, or a plan to taper to monotherapy, or augmentation of Clozapine. () Patient's Diet: Regular. Patient's Activity: No restrictions. DC Disposition: Patient discharged to home and roommate. Recommendations: The patient was advised to please take medications. She was advised to abstain from all substances. She was advised to f/u with [facility] intake on 07/21/16 at 9: 30AM. She was advised to follow-up with her PCP regarding elevated Hemoglobin A1C and high cholesterol and triglycerides. She was advised to follow-up with [facility] an [facility]ptive. She was advised that in the event of an emergency, to call [phone]/ go to nearest emergency department. Patient verbalized understanding of all instructions. Referred To: [address] [id number] ([phone] Intake scheduled on 07/21/16 at 9:30AM. Copies To: [facility]
--- NOTE | 2016-07-20 13:56 | NUR ---
PT DC TODAY. PT IS LESS ANXIOUS, LESS DEPRESSED. SHE DENIES SI. PT IS AWARE OF PROCESS FOR CONNECTING TO PSYCHIATRIC SERVICES IF SHE FEELS SUICIDAL, OVERWHELMING ANXIETY, OR SIGNIFICANT DEPRESSION. PT SLEPT WELL LAST NIGHT, AND SHE IS EATING WNL. PT WILL FOLLOW UP WITH IOP.
--- NOTE | 2016-07-20 14:53 | NUR ---
PT DENIES SUICIDAL IDEATION WHEN ASKED, AND SHE WAS GIVEN INFORMATION ON SUICIDE PREVENTION AND DEPRESSION.
== END 2016-07-20 15:09 | DRG 776 ==
LOC: ERH 09:33 → CP SOUTH 16:10 → ENPENDDIS 16:10 → ERHI 16:10 → CP SOUTH 17:21
PROVIDERS: Physician Assistant; ADMIT Psychiatry & Neurology Psychiatry
DX: F12.20 Cannabis dependence, uncomplicated (principal); J45.909 Unspecified asthma, uncomplicated; E66.9 Obesity, unspecified
CPT/HCPCS: 80307; 81025; 90834; G0480; J0401

== ENCOUNTER 2016-09-26 17:42 | Inpatient (IN) | payer OTHER ==
[~2016-09-26] VITALS: Ht 167.6 cm; Wt 107.0 kg
[~2016-09-26 17:42] MED LIST changes: +ABILIFY10 M1 PO; +ABILIFY15 M1 PO; +AMOXICILLIN875 M1 PO; +ESCITALOPRAM OX20 MG PO; +LEXAPRO20 M1 PO; +NICOTINE PATCH1 EAC3 TOP; +PROAIR HFA8.5 GM; +PROAIR HFA8.5 GM INH
--- NOTE | 2016-09-26 17:48 | NUR ---
PT TO ED FOR +SI, REPORTING SHE TOOK AN ENTIRE BOTTLE OF TYLENOL PM THIS AM. UNSURE WHAT TIME. STATING "I TOOK IT WITH THE INTENTION TO NOT WAKE UP".
--- NOTE | 2016-09-26 18:04 | ED PSYCHIATRIC COMPLAINT ---
History of Present Illness General Chief Complaint: Psychiatric Related Complaint Stated Complaint: +SI Source: patient, old records Exam Limitations: no limitations Vital Signs & Intake/Output Vital Signs & Intake/Output Vital Signs Date Time Temp Pulse Resp B/P Pulse O2 O2 Flow FiO2 Ox Delivery Rate 09/26 2042 98.2 90 19 138/78 100 Room Air 09/26 1828 98 Room Air 09/26 1746 98.0 106 19 154/87 100 Room Air Allergies Coded Allergies: NO KNOWN ALLERGIES (07/15/16) Triage Note: PT TO ED FOR +SI, REPORTING SHE TOOK AN ENTIRE BOTTLE OF TYLENOL PM THIS AM. UNSURE WHAT TIME. STATING "I TOOK IT WITH THE INTENTION TO NOT WAKE UP". Triage Nurses Notes Reviewed? yes Onset: Morning Duration: hour(s):, constant, continues in ED Timing: recent history Severity: severe Associated Symptoms: impaired concentration, ingestion, insomnia, suicidal ideation LMP (ages 10-50): unknown : No Patient currently breastfeeds: No HPI: The morning prior to admission patient had increased depression with suicidal overdose of one bottle of Tylenol PM 6 or more hours prior to admission. She complains of insomnia anorexia anhedonia. She denies fever chills nausea vomiting diarrhea abdominal pain chest pain shortness breath headache dysuria rash bleeding hallucination homicidal ideation. (ANDREA WEST MD) Past History Travel History Traveled to [place] past 21 day No Medical History Any Pertinent Medical History? 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 No (ANDREA WEST MD) Review of Systems Review of Systems Constitutional: Reports: see HPI, malaise. EENTM: Reports: no symptoms. Respiratory: Reports: no symptoms. Cardiovascular: Reports: no symptoms. GI: Reports: no symptoms. Genitourinary: Reports: no symptoms. Musculoskeletal: Reports: no symptoms. Skin: Reports: no symptoms. Neurological/Psychological: Reports: see HPI, depressed, emotional problems. Hematologic/Endocrine: Reports: no symptoms. Immunologic/Allergic: Reports: no symptoms. All Other Systems: Reviewed and Negative (ANDREA WEST MD) Physical Exam Physical Exam General Appearance: well developed/nourished, alert, awake, anxious, moderate distress, obese Head: atraumatic, normal appearance Eyes: Bilateral: normal appearance, PERRL, EOMI. 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 yes 2 Previous Attempts/Psych Care yes 1 Rational Thinking Loss? yes 2 Single//? yes 1 Organized/Serious Attempt yes 2 Social Support? has no support 1 Stated Future Intent? yes 2 Total 11 SAD PERSONS Done? yes (ANDREA WEST MD) Progress Differential Diagnosis: drug intoxication, drug overdose, drug withdrawal, hypoglycemia Plan of Care: Orders Procedure Date/time Status Regular Diet 09/27 B Active Regular Diet 09/26 D Complete Admit to inpatient psych 09/26 2246 Active Patient Data - inpatient psych 09/27 2139 Active Admit to inpatient psych 09/27 2139 Active Pathway - chart 09/27 2139 Active Add-on Test (ER Only) 09/26 192 Active ED CRISIS PSYCH CONSULT 09/26 1837 Active ACETONE 09/26 1810 Complete Continuous Observation Monitor 09/26 1800 Active URINE DRUG SCREEN FOR ER ONLY 09/26 1800 Complete ACETOMINOPHEN 09/26 1800 Complete SALICYLATE 09/26 1800 Complete ETHANOL 09/26 1800 Complete COMPREHENSIVE METABOLIC PANEL 09/26 1800 Complete CBC WITHOUT DIFFERENTIAL 09/26 1800 Complete EKG 09/26 1800 Active Vital Signs 09/26 UNK Active FingerStick- Glucose 09/26 UNK Active CIWA 09/26 UNK Active Activity/Ambulation 09/26 UNK Active Current Medications Sig/Fatmata Start time Last Medication Dose Stop Time Status Admin Aripiprazole 2 MG DAILY 09/27 1000 UNVr (Abilify) Escitalopram Oxalate 10 MG DAILY 09/27 1000 UNVr (Lexapro) Insulin Aspart 0 TIDAC 09/27 08 AC (NovoLOG) Hydroxyzine HCl 25 MG Q6P PRN 09/26 2144 AC (Atarax) Lorazepam 2 MG Q2P PRN 09/26 2144 AC (Ativan) Lorazepam 1 MG Q2P PRN 09/26 2144 AC (Ativan) Trazodone HCl 50 MG AT BEDTIME NEED.. 09/26 2144 AC (Desyrel) Folic Acid 1 MG DAILY 09/27 2139 UNVr (Folic Acid) 09/28 1001 Multivitamins 1 TAB DAILY 09/27 2139 UNVr (Theragran Vitamins) Thiamine HCl 100 MG DAILY 09/27 2139 UNVr (Vitamin B1) 09/28 1001 Laboratory Tests 09/26/162008: Urine Opiates Screen < 100.00, Methadone Screen 60, Barbiturate Screen < 60, Ur Phencyclidine Scrn < 6.00, Amphetamines Screen 109, U Benzodiazepines Scrn < 85, Urine Cocaine Screen < 50, Urine Cannabis Screen 73.70 H 09/26/161809: Anion Gap 17 H, Estimated GFR > 60, BUN/Creatinine Ratio 11.1, Glucose 354 H, Calcium 9.4, Total Bilirubin 0.8, AST 21, ALT 42, Alkaline Phosphatase 109, Total Protein 8.2, Albumin 3.0 L, Globulin 5.2 H, Albumin/Globulin Ratio 0.6 L, CBC w Diff MAN DIFF ORDERED, RBC 4.76, MCV 79.0 L, MCH 29.0, RDW 16.0 H, MPV 8.8, Segmented Neutrophils 37 L, Band Neutrophils 1, Lymphocytes 57 H, Monocytes 4, Basophils 1, Platelet Estimate VERIFIED BY SMEAR, Normochromic RBCs VERIFIED, Anisocytosis 1+, PUBS MCHC 36.8, Fld Total RBCs Counted 100, Salicylates < 1.0, Acetaminophen < 10.0 L, Serum Alcohol < 10.0, Acetone Level NEGATIVE Microbiology 09/27 1755 EXTREMITIE: Culture & Sensitivity - CAN Cancelled: Cancelled via OE: Per MD Decision 09/27 1755 EXTREMITIE: Gram Stain - CAN Cancelled: Cancelled via OE: Per Decision Initial ED EKG: normal axis, normal intervals, normal p-waves, normal QRS complex, normal sinus rhythm, no ST T wave changes Prior EKG: unchanged Rhythm Strip: normal sinus rhythm Hand-Off Endorsed To: JOHN AHMADI MD Endorsed Time: 1899 Pending: consult, labs (ANDREA WEST MD) Comments: 09/26/2016 8:39:40 PM patient signed out to me by Dr. 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 At this point the patient's glucose is below 300 and serum acetone is negative. I doubt DKA. I Feel the patient is now medically cleared for crisis evaluation. 09/26/2016 10:48:16 PM patient's blood sugar is trending downward, I feel she is medically stable for inpatient psychiatric admission. (JOHN AHMADI MD) Departure Departure Disposition: STILL A PATIENT Condition: Stable Clinical Impression Primary Impression: Overdose by acetaminophen Qualifiers: Encounter type: initial encounter Injury intent: intentional self- harm Qualified Code: T39.1X2A - Poisoning by 4-Aminophenol derivatives, intentional self-harm, initial encounter Secondary Impressions: Depression with suicidal ideation Referrals: BASIL FRIEDMAN MD (PCP/Family) Departure Forms: Customer Survey General Discharge Information (ANDREA WEST MD) Psych Admission Note Psychiatric Admission: I have seen and evaluated GABRIELA CHOWDHURY. I have also reviewed all the pertinent lab results and diagnostic results. GABRIELA CHOWDHURY will be admitted to our inpatient Psychiatric unit for treatment and care. (DAIANA JOSE,JOHN Solomon) Critical Care Note Critical Care Note Critical Care Time: 30-74 min (JOHN AHMADI MD)
[2016-09-26] MEDS ORDERED: ABILIFY20 M1 PO (18:10)
--- NOTE | 2016-09-26 18:14 | NUR ---
EKG IN PROGRESS. BLOODWORK DRAWN AND SENT BY NANDO GALAN. 1 BELONGINGS BAG TO CLOSET AND 1 VALUABLES TO SAFE
[2016-09-26 18:19] LABS: HEMATOCRIT 37.6 % (37-47); MEAN CORPUSCULAR HGB CONC 36.8 G/DL (33.0-37.0); MEAN PLATELET VOLUME 8.8 FL (7.4-10.4); PLATELET COUNT 253 /CUMM (130-400); RED BLOOD CELL CT 4.76 /CUMM (4.20-5.40)
--- NOTE | 2016-09-26 18:20 | NUR ---
PT IS DIABETIC, DOES NOT HAVE AN WALLPAPERER AND HAS NOT BEEN USING INSULIN, ORAL DIABETIC MEDS OR CHECKING BLOOD SUGARS AT HOME. ACCUCHECK AT THIS TIME IS [address] WEST INFORMED. DENIES POLYURIA/POLYDYPSIA. MOOD IS DOWNCAST, DYSPHORIC AND AFFECT FLAT AND WITHDRAWN. SITTER PRESENT FOR SAFETY.
--- NOTE | 2016-09-26 18:26 | NUR ---
FINGER FOOD TRAY ORDERED PER PT REQUEST
--- NOTE | 2016-09-26 19:04 | NUR ---
IV ESTABLISHED AND NS IVF RUNNING AND MEDICATED WITH IV INSULIN R, DOSE VERIFIED WITH LINA FERRER. PT EXPLAINED PLAN FOR REEVAL OF BLOOD SUGAR IN 30 MINS. SITTER REMAINS PRESENT FOR SAFETY.
--- NOTE | 2016-09-26 20:40 | NUR ---
PT AMBULATORY TO AND FROM RESTROOM WITH EVEN AND STEADY GAIT. SITTER IN ATTENDANCE.
--- NOTE | 2016-09-26 20:43 | NUR ---
URINE TRIO OBTAINED AND SENT
--- NOTE | 2016-09-26 21:10 | ED PSY CRISIS COLLATERAL NOTE ---
Collateral Note Collateral Note Family/Inform/Alfredito Contacts: Phone contact with Mr. Hilario Pederson (pt's father) . He was unaware that the pt was here at [facility]. He states for the past two days the pt has been depressed and that she suffers from "Massive Depression". He states the pt doesn't live with him, but he is caring for her only child. "She goes back and forth". As he mentioned, that the pt was living in [place] and returned to [place] recently. Mr. Pederson had very little information to share, and asked that he be contacted with updates of the pt's condition. He was given the Crisis phone number to contact Crisis with questions.
--- NOTE | 2016-09-26 21:24 | NUR ---
CAREER COACH IN ROOM FOR EVAL
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
--- NOTE | 2016-09-26 22:54 | NUR ---
REPORT GIVEN TO RECEIVING RN MRAIE ON [facility]. AWARE OF ACCUCHECK AND HS SLIDING SCALE INSULIN FOR BEDTIME.
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
[2016-09-26 23:20] VITALS: BP 130/78
--- NOTE | 2016-09-26 23:57 | NUR ---
PT IS A 41 YR OLD FEMALE WHO RETURNS TO THIS UNIT ON A VOLUNTARY BASIS FOR INCREASED DEPRESSION AND SUICIDAL IDEATION. HER SLEEPING AND EATING PATTERNS HAVE BEEN INCONSISTENT. SHE HAS BEEN INCREASINGLY ISOLATIVE, HELPLESS, HOPELESS, AND IRRITABLE. THE PATIENT HAS HAD ELEVATED BLOOD SUGARS. THE PATIENT AGREES TO BE SAFE ON THE UNIT. SHE DENIES SI, HI, AH, VH, OR PARANOID IDEATION. THE PATIENT DENIES PAIN IN HER BODY. NO PROBLEMS OF BOWEL OR BLADDER. THE PT DENIED A PROBLEM WITH DRUGS OR ALCHOL. SHE CLAIMS SHE IS A 2 PACK A DAY SMOKER.
[2016-09-27] VITALS (7 sets, daily range): BP systolic 129–145; BP diastolic 72–88
--- NOTE | 2016-09-27 06:20 | NUR ---
PT ADMITTED AT 2320. PT IRRITABLE, MINIMALLY DISCLOSING, PROVOCATIVE WITH SAFETY ANSWERS BUT AGREES TO BE SAFE ON THE UNIT. PT SLEPT WELL. SHE HAS HAD ELEVATED BLOOD SUGARS. PATIENT IS TID ACCUCHECK. PT STATES SHE IS A 2 PACK A DAY SMOKER.
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
--- NOTE | 2016-09-27 13:25 | Cons- Endocrinology ---
General Information and HPI Consulting Request Date of Consult: 09/27/16 Requested By: Lori Reason for Consult: management of DM type 2 Source of Information: patient, old records Exam Limitations: no limitations History of Present Illness: She is a 41 y/o female, hx of gestational diabetes, was diagnosed with DM type 2 approximately 3 months ago, was on diet control. In addition, she has had hx of PTSD and depression. She was admitted to after she overdosed Tylenol. However, in ER, her acetaminopen level was < 10, both AST and ALT were in the normal range. Urine toxi screening showed postive for Cannabis. In hospital, she was on Novolog coverage and her FSGs were 367 and 491. Allergies/Medications Allergies: Coded Allergies: NO KNOWN ALLERGIES (07/15/16) Review of Systems Review of Systems Constitutional: Reports: see HPI. Cardiovascular: Denies: chest pain. Respiratory: Denies: short of breath. GI: Denies: abdominal pain. Hematologic/Endocrine: Denies: polyuria, polydipsia. 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: NONE Surgical History Surgical History: SEE BELOW Family History Relations & Conditions If Any: MOTHER Relation not specified for: FH: diabetes mellitus Psychosocial History ETOH Use: occasional use Illicit Drug Use: marijuana Exam & Diagnostic Data Last 24 Hrs of Vital Signs/I&O Vital Signs Date Time Temp Pulse Resp B/P Pulse O2 O2 Flow FiO2 Ox Delivery Rate 09/27 1226 83 129/80 09/27 1213 83 129/80 09/27 0821 97.3 79 133/72 09/27 0821 97.3 79 133/72 09/26 2320 97.8 74 130/78 09/26 2251 98.0 78 19 111/76 98 Room Air 09/26 2043 98.2 90 19 138/78 100 Room Air 09/26 1828 98 Room Air 09/26 1746 98.0 106 19 154/87 100 Room Air Intake & Output 09/27 1600 09/27 0800 09/27 0000 Intake Total 1000 Output Total Balance 1000 Intake, IV 1000 Patient 236 lb Weight Physical Exam General Appearance: no apparent distress Neck: thyromegaly Respiratory: lungs clear Cardiovascular: regular rate/rhythm Gastrointestinal: soft Extremities: no edema Labs/[place] Results: Laboratory Tests 09/26 1810 Chemistry Sodium (137 - 145 mmol/L) 127 L Potassium (3.5 - 5.1 mmol/L) 4.0 Chloride (98 - 107 mmol/L) 93 L Carbon Dioxide (22 - 30 mmol/L) 17 L Anion Gap (5 - 16) 17 H BUN (7 - 17 mg/dL) 10 Creatinine (0.5 - 1.0 mg/dL) 0.9 Estimated GFR (>60 ml/min) > 60 BUN/Creatinine Ratio (7 - 25 %) 11.1 Glucose (65 - 99 mg/dL) 354 H Calcium (8.4 - 10.2 mg/dL) 9.4 Total Bilirubin (0.2 - 1.3 mg/dL) 0.8 AST (14 - 36 U/L) 21 ALT (9 - 52 U/L) 42 Alkaline Phosphatase (<127 U/L) 109 Total Protein (6.3 - 8.2 g/dL) 8.2 Albumin (3.5 - 5.0 g/dL) 3.0 L Globulin (1.9 - 4.2 gm/dL) 5.2 H Albumin/Globulin Ratio (1.1 - 2.2 %) 0.6 L Hematology CBC w Diff MAN DIFF ORDERED WBC (4.8 - 10.8 /CUMM) 7.0 RBC (4.20 - 5.40 /CUMM) 4.76 Hgb (12.0 - 16.0 G/DL) 13.8 Hct (37 - 47 %) 37.6 MCV (81.0 - 99.0 FL) 79.0 L MCH (27.0 - 31.0 PG) 29.0 RDW (11.5 - 14.5 %) 16.0 H Plt Count (130 - 400 /CUMM) 253 MPV (7.4 - 10.4 FL) 8.8 Segmented Neutrophils (42.2 - 75.2 %) 37 L Band Neutrophils (0.0 - 5.0 %) 1 Lymphocytes (20.5 - 51.1 %) 57 H Monocytes (1.7 - 9.3 %) 4 Basophils (0.0 - 2.0 %) 1 Platelet Estimate (ADEQUATE) VERIFIED BY SMEAR Normochromic RBCs VERIFIED Anisocytosis 1+ PUBS MCHC (33.0 - 37.0 G/DL) 36.8 Other Body Source Fld Total RBCs Counted (%) 100 Toxicology Salicylates (0 - 20.0 mg/dL) < 1.0 Urine Opiates Screen (>2000 NG/ML) < 100.00 Methadone Screen (>300 NG/ML) 60 Acetaminophen (10.0 - 30.0 ug/mL) < 10.0 L Barbiturate Screen (>200 NG/ML) < 60 Ur Phencyclidine Scrn (>25 NG/ML) < 6.00 Amphetamines Screen (>1000 NG/ML) 109 U Benzodiazepines Scrn (>200 NG/ML) < 85 Urine Cocaine Screen (>300 NG/ML) < 50 Urine Cannabis Screen (>50 NG/ML) 73.70 H Serum Alcohol (<10 MG/DL) < 10.0 Acetone Level (NEGATIVE) NEGATIVE Assessment/Plan Assessment/Plan She is a 41 y/o female, hx of gestational diabetes, was diagnosed with DM type 2 approximately 3 months ago, was on diet control. In addition, she has had hx of PTSD and depression. She was admitted to after she overdosed Tylenol. However, in ER, her acetaminopen level was < 10, both AST and ALT were in the normal range. Urine toxi screening showed postive for Cannabis.Her glucose level was > 400 before lunch and her DM is not controlled. DM management: 1. request nutrition consult; 2. start Levemir 10 units twice a day; 3. increase metformin to 1000 mg twice a day; 4. adjust Novolog coverage before meals and add Novolog coverage at bedtime; 5. monitor FSGs; 6. repeat electrolytes, LFT and lipid panel; check HbA1C; 7. on exam, her thyroid gland is enlarged, I will order TFT and thyroid antibody panel. I will recommend having thyroid u.s done as outpatient. will follow. Inpatient Diabetes Orders Before Each Meal: Bolus Insulin: Novolog < 80 mg/dl: no coverage 80-100 mg/dl: no coverage 101-120 mg/dl: no coverage 121-150 mg/dl: no coverage 151-200 mg/dl: no coverage 201-250 mg/dl: 2 units 251-300 mg/dl: 4 units 301-350 mg/dl: 6 units 351-400 mg/dl: 8 units > 400 mg/dl: 10 units Bedtime: Bolus Insulin: Novolog < 80 mg/dl: no coverage 80-100 mg/dl: no coverage 101-120 mg/dl: no coverage 121-150 mg/dl: no coverage 151-200 mg/dl: no coverage 201-250 mg/dl: no coverage 251-300 mg/dl: 2 units 301-350 mg/dl: 3 units 351-400 mg/dl: 4 units > 400 mg/dl: 5 units Consult Acknowledgment - Thank you for your consult request.
--- NOTE | 2016-09-27 13:59 | NUR ---
Affect is fairly bright with moments of being demanding and irritable. Demonstrated keen interest in getting better managment of diabetes. is out in community interacting with peers and staff. mood is stable, reported SI when asked in am. did not want to verbalize a plan. psychiatrist was informed.
--- NOTE | 2016-09-27 14:53 | History & Physical ---
General Information and HPI Source of Information: patient, old records Exam Limitations: no limitations History of Present Illness: 41F PMH PTSD, MDD admitted to [facility] with severe depression and suicidal ideation. Patient reports that she feels well and has no complaints other than depression. She reports vaginal pruritis for the past 3 days. Fingerstick taken at bedside was 491. She reports a history of diabetes but does not take any medication for it. Otherwise, no pain, breathing well, good appetite, normal urinartion and BM, no neurological complaints. 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 EENTM: Reports: no symptoms. Cardiovascular: Reports: no symptoms. Respiratory: Reports: no symptoms. GI: Reports: no symptoms. Genitourinary: Reports: see HPI. Musculoskeletal: Reports: no symptoms. Skin: Reports: no symptoms. Neurological/Psychological: Denies: no symptoms. Hematologic/Endocrine: Denies: no symptoms. Immunologic/Allergic: Denies: no symptoms. All Other Systems: Reviewed and Negative Exam & Diagnostic Data Last 24 Hrs of Vital Signs/I&O Vital Signs Date Time Temp Pulse Resp B/P Pulse O2 O2 Flow FiO2 Ox Delivery Rate 09/27 1226 83 129/80 09/27 1213 83 129/80 09/27 0821 97.3 79 133/72 04 0821 97.3 79 133/72 09/26 2320 97.8 74 130/78 09/26 2251 98.0 78 19 111/76 98 Room Air 09/26 2043 98.2 90 19 138/78 100 Room Air 09/26 1828 98 Room Air 09/26 1746 98.0 106 19 154/87 100 Room Air Intake & Output 09/27 1600 09/27 0800 09/27 0000 Intake Total 1000 Output Total Balance 1000 Intake, IV 1000 Patient 107.048 kg Weight Last 24 Hrs of Labs/[place]: Laboratory Tests 09/26/162008: Urine Opiates Screen < 100.00, Methadone Screen 60, Barbiturate Screen < 60, Ur Phencyclidine Scrn < 6.00, Amphetamines Screen 109, U Benzodiazepines Scrn < 85, Urine Cocaine Screen < 50, Urine Cannabis Screen 73.70 H 09/26/16 1810: Anion Gap 17 H, Estimated GFR > 60, BUN/Creatinine Ratio 11.1, Glucose 354 H, Calcium 9.4, Total Bilirubin 0.8, AST 21, ALT 42, Alkaline Phosphatase 109, Total Protein 8.2, Albumin 3.0 L, Globulin 5.2 H, Albumin/Globulin Ratio 0.6 L, CBC w Diff MAN DIFF ORDERED, RBC 4.76, MCV 79.0 L, MCH 29.0, RDW 16.0 H, MPV 8.8, Segmented Neutrophils 37 L, Band Neutrophils 1, Lymphocytes 57 H, Monocytes 4, Basophils 1, Platelet Estimate VERIFIED BY SMEAR, Normochromic RBCs VERIFIED, Anisocytosis 1+, PUBS MCHC 36.8, Fld Total RBCs Counted 100, Salicylates < 1.0, Acetaminophen < 10.0 L, Serum Alcohol < 10.0, Acetone Level NEGATIVE Microbiology 09/27 1755 EXTREMITIE: Culture & Sensitivity - CAN Cancelled: Cancelled via OE: Per Decision 09/27 1755 EXTREMITIE: Gram Stain - CAN Cancelled: Cancelled via OE: Per Decision Assessment/Plan Assessment: 41F PMH MDD, PTSD admitted to [facility] for suidical ideation and severe depression, also with Type 2 diabetic hyperglycemia and vaginal candidiasis. Plan - Endocrine consult for uncontrolled Type 2 DM - Clotrimazole - Management by psychiatry - Ambulatory for DVT PPx As Ranked By This Provider Problem List: 1. Hyperglycemia due to type 2 diabetes mellitus 2. Vaginal candidiasis 3. Depression with suicidal ideation Miscellaneous Miscellaneous Documentation Attending Case Discussed With: NEHEMIAH JOY MD Primary Care Physician: BASIL FRIEDMAN MD Patient sees these Specialists None Level of Patient Care: [facility]
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
--- NOTE | 2016-09-27 22:24 | NUR ---
PT WAS ISOLATIVE AND WITHDRAWN THIS EVENING STAYING IN HER ROOM READING MOST OF EVENING SHIFT. PT IS STABLE WITH BRIGHT AFFECT THAT IS NOT CONGRUENT TO HER REPORTING THOUGHTS AND FEELINGS OF SI. PT DENIES ANY PLAN TO HARM HERSELF WHILE ON THE UNIT. ATTENDED WRAP UP AND REPORTED HAVING A GOOD DAY. VS ARE STABLE.
[2016-09-28] VITALS (7 sets, daily range): BP systolic 119–136; BP diastolic 72–84
--- NOTE | 2016-09-28 07:36 | NUR ---
PATIENT SLEPT MOST OF NIGHT BUT WAS RESTLESS, TOSSING AND TURNING.
--- NOTE | 2016-09-28 09:26 | PN- Diabetes ---
Assessment/Plan Assessment: She is a 41 y/o female, hx of gestational diabetes, was diagnosed with DM type 2 approximately 3 months ago, was on diet control. In addition, she has had hx of PTSD and depression. She was admitted to after she overdosed Tylenol. However, in ER, her acetaminopen level was < 10, both AST and ALT were in the normal range. Urine toxi screening showed postive for Cannabis.Her glucose level was > 400 before lunch and her DM is not controlled. She was put on Levemir 10 units twice a day, metformin 1000 mg twice a day and Novolog coverage before meals and Novolog coverage at bedtime. Her FSGs were 491 , 329, 330 and 393. Plan: 1. increase Levemir to 20 units twice a day; 2. continue metformin 1000 mg twice a day; 3. adjust Novolog coverage before meals --- detail see the inpatient DM order; 4. continue the current Novolog coverage at bedtime; 5. monitor FSGs. will follow. Inpatient Diabetes Orders Before Each Meal: Bolus Insulin: Novolog < 80 mg/dl: no coverage 80-100 mg/dl: 4 units 101-120 mg/dl: 4 units 121-150 mg/dl: 4 units 151-200 mg/dl: 6 units 201-250 mg/dl: 8 units 251-300 mg/dl: 10 units 301-350 mg/dl: 12 units 351-400 mg/dl: 14 units > 400 mg/dl: 16 units Subjective Subjective: She is still in bed this morning. Objective Last 24 Hrs of Vital Signs/I&O Vital Signs Date Time Temp Pulse Resp B/P Pulse O2 O2 Flow FiO2 Ox Delivery Rate 09/28 826 97.8 87 136/72 09/28 08 97.8 87 136/72 09/27 2016 89 145/88 09/27 2008 97.7 89 145/88 09/27 1602 89 143/76 09/27 1541 89 143/76 09/27 1226 83 129/80 09/27 1213 83 129/80 Findings Pertinent Lab/[place] Results: Laboratory Tests 09/28 09/28 0615 0615 Chemistry Sodium (137 - 145 mmol/L) 130 L Potassium (3.5 - 5.1 mmol/L) 4.5 Chloride (98 - 107 mmol/L) 99 Carbon Dioxide (22 - 30 mmol/L) 18 L Anion Gap (5 - 16) 14 BUN (7 - 17 mg/dL) 10 Creatinine (0.5 - 1.0 mg/dL) 0.8 Estimated GFR (>60 ml/min) > 60 BUN/Creatinine Ratio (7 - 25 %) 12.5 Hemoglobin A1c (4.2 - 5.8 %) Pending Total Bilirubin (0.2 - 1.3 mg/dL) 0.7 Direct Bilirubin (< 0.4 mg/dL) 0.4 AST (14 - 36 U/L) 20 ALT (9 - 52 U/L) 44 Alkaline Phosphatase (<127 U/L) 86 Total Protein (6.3 - 8.2 g/dL) 7.0 Albumin (3.5 - 5.0 g/dL) 2.9 L Triglycerides Cancelled Cholesterol Cancelled LDL Cholesterol, Calc Cancelled HDL Cholesterol Cancelled Cholesterol/HDL Ratio Cancelled TSH (0.270 - 4.200 uIU/mL) 1.460 Free T4 (0.79 - 2.35 ng/dL) 1.35 Immunology Thyroglobulin Antibody (< 61 U/mL) Pending Thyroid Peroxidase Ab (< 61 U/mL) Pending
--- NOTE | 2016-09-28 14:47 | NUR ---
PT IS COMPLIANT AND COOPERATIVE. MOOD IS STABLE WITH A FLAT AND SULLEN AFFECT. PT ENDORSED PASSIVE SI DURING 0800 VITALS- STATED SHE FEELS SAFE ENOUGH HERE AND WILL LET STAFF KNOW IF SHE WILL HURT SELF. PT HAS BEEN ISOLATIVE AND WITHDRAWN MAJORITY OF DAY IN BED. PT HAS MINIMAL INTERACTION WITH PEERS AND STAFF. PT HAS REFUSED GROUPS. VITALS ARE STABLE, APPETITE IS GOOD. BLOOD SUGAR IS ELEVATED- 393 @0800 AND 268 @1230.
--- NOTE | 2016-09-28 15:52 | SOCIAL WORKER TX PLAN PSYCH ---
Treatment Plan - Please Document: - Evidence that there is ongoing collaboration between - the patient and the interdisciplinary team, - including the patient's active participation and - responsibility for engaging in the treatment regimen, - and that the treatment plan is individualized and - relevant to the patient's conditions. - Treatment plan should reflect documentation indicating - that all active therapeutic efforts are included. 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 Problem/Goals #1 Problem #1: depression Goal (Short Term): Patient will resume medications to help stabilize mood. Goal (Assisted): Patient will identify protective factors and reasons for living Interventions: patient will be offered medication management with the LUBRICATING ENGINEER, groups on symptom management, coping skills, relaxation group, accupuncture, goals group, focus group. Podiatric Aide will help explore strengths and resources. die lay out worker will discuss psychosocial stressors and coping skills. Podiatric Aide will assist with aftercare planning. DSM5/PS Stressors/Medical Prob Diagnosis' (DSM 5, Stressors, Medical): F32.9 Unspecified Depressive Disorder F12.20 Cannabis Use Disorder, Moderate N94.3 Premenstrual Dysphoric Disorder by history R/O PTSD R/O Bipolar Disorder R/O Borderline Personality Disorder Diabetes Obesity Asthma Current GAF: 20 Treatment Team - Responsibilities of members of the treatment team include: - Medication Management- MD or LUBRICATING ENGINEER - Medication Administration and Monitoring- Nurse - Group Therapy- Occupational Therapist - 1:1 Therapy,Disch Planning,family involvement-Podiatric Aide
--- NOTE | 2016-09-28 15:52 | SOCIAL WORKER PROG NOTE PSYCH ---
Social Work Progress Note Progress Note Agapito Gould APRN and I met with Aranza together today. Aranza talked about feeling very suicidal and reported that she was having chronic intrusive suicidal thoughts, even throughout the day today. She is able to contract for safety here on the unit and states she would not hurt herself. She verbalized how she did not like [facility] and how it felt very "overcrowded" to her. She said she would come late and leave early. She was referred to [facility], but said she was put on a waiting list. She ended up running out of meds a few weeks ago. She said she did well when she was on Abilify and Lexapro. Reports that she is still in a bad living situation. Living with a friend, her 4 children, and 4 cats. She sees her 4 year old daughter at her parents home, but again states her parents don't like her. She really wants to get started back on the Abilify. Although did have concerns around how that effects the Diabetes. She was recently diagnoses with Diabetes in June. She is on pills and insulin. She asked about possibly going to a correction. I told her the process through 211 and shared information about [facility] and respite. She seemed interested in both. 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 She said they will call her when they need her and she then has to accept the job or not. She didn't seem too concerned about reporting her wherabouts today. She reports that her depression is a an 11 today 1-10 (10 being worst). Denies any anxiety. Denies AH/, HI.
--- NOTE | 2016-09-28 17:00 | CP SOUTH PROGRESS NOTE PSYCH ---
Psych (Inpt) Progress Note Progress Note Progress Note: I discussed this patient's progress to date, current mental status, treatment process in the context of the treatment plan, and discharge planning with staff/ team in the daily morning inpatient team meeting. I also met with the patient myself in individual session. SUBJECTIVE: "I'm very very suicidal. It was about a boy. It shouldn't have made me suicidal, but it did." OBJECTIVE: Current Medications Sig/Fatmata Start time Last Medication Dose Route Stop Time Status Admin Aripiprazole 5 MG AT BEDTIME 09/28 220 CAN PO Aripiprazole 5 MG 08,09/28 2000 AC PO Aripiprazole 2 MG Q4 HRS NEEDED PRN 09/28 1545 AC PO Clotrimazole 1 EULALIO AT BEDTIME 09/27 1500 AC 09/27 VAG 1544 Escitalopram Oxalate 10 MG AT BEDTIME 09/27 2200 AC 09/27 PO 2144 Folic Acid 1 MG DAILY 09/26 2140 DC 09/28 PO 09/28 1001 0835 Gabapentin 300 MG 0800,1300,1700,2200 09/28 1300 AC 09/28 PO 1620 Hydroxyzine HCl 25 MG Q6P PRN 09/26 2145 DC 09/27 PO 2044 Ibuprofen 600 MG Q6P PRN 09/27 1130 AC 09/28 PO 1033 Insulin Aspart 0 TIDAC/HS 09/27 1700 AC 09/28 SC 1210 Insulin Detemir 20 UNITS BID 09/28 1000 AC 09/28 SC 1030 Insulin Detemir 10 UNITS BID 09/27 1306 DC 09/27 SC 2146 Lorazepam 2 MG Q2P PRN 09/26 2145 AC PO Lorazepam 1 MG Q2P PRN 09/26 2145 AC PO Metformin HCl 1,000 MG 0800,1700 09/27 1700 AC 09/28 PO 0835 Multivitamins 1 TAB DAILY 09/26 2140 AC 09/28 PO 0835 Nicotine 2 MG Q2P PRN 09/27 1130 AC 09/28 PO 1546 Nicotine 21 MG DAILY 09/27 1127 AC 09/28 TOP 0621 Quetiapine Fumarate 50 MG ONCE ONE 09/27 2154 DC 09/27 PO 09/27 2155 2208 Quetiapine Fumarate 50 MG ONCE ONE 09/27 1954 CAN PO 09/27 2359 Thiamine HCl 100 MG DAILY 09/27 2139 DC 09/28 PO 09/28 1001 0835 Trazodone HCl 50 MG AT BEDTIME NEED.. 09/26 2144 AC PO Laboratory Tests 09/28 09/28 0615 0615 Chemistry Sodium (137 - 145 mmol/L) 130 L Potassium (3.5 - 5.1 mmol/L) 4.5 Chloride (98 - 107 mmol/L) 99 Carbon Dioxide (22 - 30 mmol/L) 18 L Anion Gap (5 - 16) 14 BUN (7 - 17 mg/dL) 10 Creatinine (0.5 - 1.0 mg/dL) 0.8 Estimated GFR (>60 ml/min) > 60 BUN/Creatinine Ratio (7 - 25 %) 12.5 Hemoglobin A1c (4.2 - 5.8 %) 11.9 H Total Bilirubin (0.2 - 1.3 mg/dL) 0.7 Direct Bilirubin (< 0.4 mg/dL) 0.4 AST (14 - 36 U/L) 20 ALT (9 - 52 U/L) 44 Alkaline Phosphatase (<127 U/L) 86 Total Protein (6.3 - 8.2 g/dL) 7.0 Albumin (3.5 - 5.0 g/dL) 2.9 L Triglycerides Cancelled Cholesterol Cancelled LDL Cholesterol, Calc Cancelled HDL Cholesterol Cancelled Cholesterol/HDL Ratio Cancelled TSH (0.270 - 4.200 uIU/mL) 1.460 Free T4 (0.79 - 2.35 ng/dL) 1.35 Immunology Thyroglobulin Antibody (< 61 U/mL) < 15 Thyroid Peroxidase Ab (< 61 U/mL) 39 Vital Signs Date Time Temp Pulse Resp B/P Pulse O2 O2 Flow FiO2 Ox Delivery Rate 09/28 1603 98 119/84 09/28 1601 98 119/84 09/28 1243 93 123/72 09/28 1222 93 123/72 09/28 08 97.8 87 136/72 09/28 08 97.8 87 136/72 09/27 2016 89 145/88 09/28 2007 97.7 89 145/88 ASSESSMENT: Patient reports continuing depression, suicidal ideation, racing thoughts. States that she had stopped taking Abilify and Lexapro a few weeks ago, because she ran out of her prescriptions and did not have a prescriber. States that she did well when she was taking these medications, and requests to restart these medications. 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 States she has a master's degree in education, with a concentration in teaching mathematics. She has not been able to work because of her mental health problems. She is currently homeless. Says that although her 4 year old daughter lives with her parents, she can not live with her parents at this time. Depression:10/10; Anxiety:0/10 (with 10 the worst.) Denies homicidal ideation, auditory hallucinations, visual hallucinations, paranoid ideation. Patient reports continuing suicidal ideation, states that she is able to contract for safety while here on the unit. Protective factor is her 4-year-old daughter, Jonathon, who is in the care of her parents. States she had a hard time sleeping last night because of racing thoughts. Has been sleeping and resting in bed today. Reports that her appetite is regular. Speech is well articulated, goal-directed, average in rate, volume and tone. Calm, cooperative, pleasant, logical. Alert and oriented 3. The patient understands the risks/benefits/side effects of the medication and is agreeable to continue taking them. PLAN: Continue to titrate Abilify upwards, she had been discharged on Abilify 15 mg in June. Continue Lexapro 10 mg daily, consider increasing Lexapro in another couple of days. Continue with current management as patient is improving. Continue to provide support and encouragement.
--- NOTE | 2016-09-28 22:10 | NUR ---
Pt is in bed during change of shift mood is stable affect is flat. Pt vital signs are stable ate well during dinner time. Compliant and cooperative with the staff. Will continue to monitor the pt overnight.
--- NOTE | 2016-09-29 06:00 | NUR ---
SLEPT WELL, NO COMPLAINTS OFFERED
[2016-09-29 06:47] VITALS: BP 135/83
[2016-09-29 08:43] VITALS: BP 151/91
[2016-09-29 08:44] VITALS: BP 151/91
--- NOTE | 2016-09-29 08:55 | PN- Diabetes ---
Assessment/Plan Assessment: She is a 41 y/o female, hx of gestational diabetes, was diagnosed with DM type 2 approximately 3 months ago, was on diet control. In addition, she has had hx of PTSD and depression. She was admitted to after she overdosed Tylenol. However, in ER, her acetaminopen level was < 10, both AST and ALT were in the normal range. Urine toxi screening showed postive for Cannabis.Her glucose level was > 400 before lunch and her DM is not controlled. Levemir was increased to 20 units twice a day; she is on metformin 1000 mg twice a day; Novolog coverage before meals was adjusted and she is on Novolog coverage at bedtime as well. Her FSGs were 321 and 342 Plan: 1. further increase Levemir to 26 units twice a day; 2. adjust Novolog coverage before meals again; detail see the inpatient insulin order; 3. continue metformin 1000 mg twice a day and Novolog coverage at bedtime; 4. monitor FSGs will follow. Subjective Subjective: her glucose levels were not controlled. Objective Last 24 Hrs of Vital Signs/I&O Vital Signs Date Time Temp Pulse Resp B/P Pulse O2 O2 Flow FiO2 Ox Delivery Rate 09/29 0844 84 151/91 04/04 0843 97.4 84 151/91 04/04 0647 97.3 85 135/83 04/03 1956 97.4 95 130/77 04/03 1603 98 119/84 04/03 1601 98 119/84 04/03 1243 93 123/72 04/03 1222 93 123/72
--- NOTE | 2016-09-29 10:52 | CP SOUTH PROGRESS NOTE PSYCH ---
Psych (Inpt) Progress Note Progress Note Progress Note: I discussed this patient's progress to date, current mental status, treatment process in the context of the treatment plan, and discharge planning with staff/ team in the daily morning inpatient team meeting. I also met with the patient myself in individual session. SUBJECTIVE: "I'm severely depressed, but at least I'm not suicidal. That's progress." OBJECTIVE: Current Medications Sig/Fatmata Start time Last Medication Dose Route Stop Time Status Admin Aripiprazole 5 MG AT BEDTIME 09/28 2200 CAN PO Aripiprazole 5 MG 08,09/28 2000 AC 09/29 PO 0840 Aripiprazole 2 MG Q4 HRS NEEDED PRN 09/28 1545 AC PO Clotrimazole 1 EULALIO AT BEDTIME 09/27 1500 AC 09/28 VAG 2231 Escitalopram Oxalate 10 MG 0800 09/30 0800 AC PO Escitalopram Oxalate 10 MG AT BEDTIME 09/27 2200 DC 09/28 PO 2234 Gabapentin 300 MG AT BEDTIME 09/29 2200 AC PO Gabapentin 300 MG Q6P PRN 09/29 0915 AC PO Gabapentin 300 MG 0800,1300,1700,2200 09/28 1300 DC 09/28 PO 2348 Hydroxyzine HCl 25 MG Q6P PRN 09/26 2145 DC 09/27 PO 2044 Ibuprofen 600 MG Q6P PRN 09/27 1130 AC 09/29 PO 0852 Insulin Aspart 0 TIDAC/HS 09/27 1700 AC 09/29 SC 0853 Insulin Detemir 26 UNITS BID 09/29 1000 AC 09/29 SC 0854 Insulin Detemir 20 UNITS BID 09/28 1000 DC 09/28 SC 2233 Lorazepam 2 MG Q2P PRN 09/26 2145 DC PO Lorazepam 1 MG Q2P PRN 09/26 2145 DC PO Metformin HCl 1,000 MG 0800,1700 09/27 1700 AC 09/29 PO 0840 Multivitamins 1 TAB DAILY 09/26 2140 AC 09/29 PO 0840 Nicotine 2 MG Q2P PRN 09/27 1130 AC 09/29 PO 0840 Nicotine 21 MG DAILY 09/27 1127 AC 09/29 TOP 0752 Trazodone HCl 50 MG AT BEDTIME NEED.. 09/26 2145 AC PO Vital Signs Date Time Temp Pulse Resp B/P Pulse O2 O2 Flow FiO2 Ox Delivery Rate 09/29 0844 84 151/91 04/04 0843 97.4 84 151/91 /04 0647 97.3 85 135/83 04 1956 97.4 95 130/77 04 1603 98 119/84 09/28 1601 98 119/84 04 1243 93 123/72 04 1222 93 123/72 ASSESSMENT: Patient presents today calm and cooperative. States she feels better than yesterday. Reports that Neurontin, which had been prescribed for discomfort and off label for anxiety, has been been helpful for sleep at night, and helpful during the day for irritability. States that she is tolerating her medications well, including Abilify and diabetes medications. She has complained of a headache, which has been relieved with Motrin. Patient is being followed for new-onset diabetes mellitus by Dr. Sanders, please refer to her notes for additional information. Depression:10/10; Anxiety:0/10 (with 10 the worst.) Denies suicidal ideation, homicidal ideation, auditory hallucinations, visual hallucinations, paranoid ideation. Although the patient has expressed suicidal ideation as recently as yesterday, states that this morning she is having no suicidal thoughts, plan or intent to harm herself. She is able to contract for safety while here on the unit. Reports sleeping well last night, after taking Neurontin. Reports that her appetite is good. Speech is well articulated, goal-directed, average in rate, volume and tone. Calm, cooperative, logical. Alert and oriented 3. The patient understands the risks/benefits/side effects of the medication and is agreeable to continue taking them. PLAN: Abilify 5 mg twice daily today, consider increasing dose tomorrow. Target dose for Abilify will be 15 mg daily. Gabapentin at bedtime, as patient reports this is helpful for sleep. Gabapentin as needed during the day for discomfort, irritability and anxiety. Continue with other current management as patient is improving. Continue to provide support and encouragement.
[2016-09-29 12:41] VITALS: BP 142/89
--- NOTE | 2016-09-29 13:14 | NUR ---
Consult received for diabetic diet counseling, thank you for consult. Pt diagnosed with DM in June but was not on medications. HgbA1c 11.9 09/28/16. BG 235, 342, 321. Pt had gestational DM but reports she didn't do what she needed to with that diet then and her baby was born early. Discussed importance of BG control in relation to preventing renal issues, nephropathy, retinopathy, etc. Pt stated she has heard the diet education before but didn't follow it but did say she knows she needs to start watching her diet. Pt had just finished eating a brownie before she came to speak with RDs, she is aware that is not a the best CHO choice. Discussed 60g CHO each meal with 15g CHO snacks, will change diet to cons CHO 2 given needs for weight. Pt was not following any diet restrictions at home. Patient education note entered today.
--- NOTE | 2016-09-29 13:52 | SOCIAL WORKER PROG NOTE PSYCH ---
See Addendum Social Work Progress Note Progress Note Pt signed documentation for [facility]. Pt reports she isnt ready to leave, she wants her meds to be just right before she feels comfortable with discharge, but does agree she will not return to the previous place she was living.
--- NOTE | 2016-09-29 14:00 | NUR ---
PT ATTENDED ONLY ONE GROUP TODAY. SHE STATED SHE PLANNED TO WORK ON CONTROLLING HER EMOTIONS. SHE DID NOT ATTEND ANY MORE GROUPS. SHE WAS COMPLIANT WITH HER MED REGIME AND WHEN ASKED PT REPORTED SOME SUICIDAL THOUGHTS BUT NO PLAN AND SHE FEELS SAFE IN THE HOSPITAL. INORGANIC CHEMICAL TECHNICIAN NOTIFIED AND MET WITH PT.PT WAS SEEN BY GLASSWARE SELECTOR FOR CONSULT
[2016-09-29 16:01] VITALS: BP 123/72
--- NOTE | 2016-09-29 17:06 | SOCIAL WORKER PROG NOTE PSYCH ---
Social Work Progress Note Progress Note Screening completed for [facility] [facility] and respite. I will need to call as discharge gets closer so they can let me know bed availability.
[2016-09-29 20:03] VITALS: BP 144/96
--- NOTE | 2016-09-29 21:24 | NUR ---
PT IS CALM, COOPERATIVE WITH STAFF AND PEERS, AND COMPLIANT WITH UNIT RULES. PT IS SLIGHTLY ISOLATIVE AND WITHDRAWN, SPENDING LONG PERIODS OF TIME SLEEPING IN PT ROOM. WHEN ENTERING [place], PT INTERACTS WELL WITH OTHERS. MOOD IS STABLE, AFFECT IS EUTHYMIC TO FULL RANGE, COMMUNCIATION IS ORGANIZED AND APPEARS NORMAL, AND APPETITE IS NORMAL. PT DENIES SI AT THIS TIME.
--- NOTE | 2016-09-30 06:10 | NUR ---
PT APPEARED TO SLEEP.
[2016-09-30 07:46] VITALS: BP 119/70
[2016-09-30 12:08] VITALS: BP 113/71
[2016-09-30 12:22] VITALS: BP 113/71
--- NOTE | 2016-09-30 13:37 | NUR ---
PT DID NOT ATTEND GROUPS TODAY AND SHE STATED HER GOAL WAS NOT TO ATTEND GROUPS TODAY. SHE IS SLIGHTLY IRRITABLE AND REPORTS SHE HAS HEADACHE AND NAUSEA..VOMITED X1 AND HAS DIARRHEA. CALL PLACED TO DR TREVINO WHO RECOMMENDS WE HOLD THE METFORMIN X 1 DOSE. PT STATED SHE FELT BETTER IN THE AFTERNOON AND WHEN ASKED SHE DENIED ANY THOUGHTS OF SUICIDE OR SELF HARM
--- NOTE | 2016-09-30 14:31 | PN- Diabetes ---
Assessment/Plan Assessment: She is a 41 y/o female, hx of gestational diabetes, was diagnosed with DM type 2 approximately 3 months ago, was on diet control. In addition, she has had hx of PTSD and depression. She was admitted to after she overdosed Tylenol. However, in ER, her acetaminopen level was < 10, both AST and ALT were in the normal range. Urine toxi screening showed postive for Cannabis.Her glucose level was > 400 before lunch and her DM is not controlled. Levemir was increased to 26 units twice a day; she is on metformin 1000 mg twice a day; Novolog coverage before meals was adjusted and she is on Novolog coverage at bedtime as well. Her FSGs were 342, 235, 264, 110, 319 and 217. But she has had diarrhea, nausea and vomiting today. She doesn't have fever. Plan: 1. hold off on metformin today; 2. continue the current insulin regimen for now; 3. mionitor FSGs. will follow. Subjective Subjective: She had nausea, vomiting and diarrhea. Objective Last 24 Hrs of Vital Signs/I&O Vital Signs Date Time Temp Pulse Resp B/P Pulse O2 O2 Flow FiO2 Ox Delivery Rate 10/01 0740 97.1 90 118/66 / 1939 97.4 97 129/77 04/05 1222 100 113/71 04 1208 100 113/71
--- NOTE | 2016-09-30 15:13 | SOCIAL WORKER PROG NOTE PSYCH ---
Social Work Progress Note Progress Note Aranza shared that she is planning to return to her friend's house in [place]. She doesn't feel she needs to go to crisis and respite. She talked about needing to work on saving money to get into her own place. She figures if she saves 200.00 a week she will have enough to move out in the next couple of months. She is hoping to have her daughter with her at the apartment. I asked if there was DCF involvement, because this is what it says in her social history. She denied this and stated DCF has not been involved. She stays at her parents house sometimes and sleeps there, but they don't want her living there. She talked about how she needs to move past the relationship with her parents and that she is tired of feeling rejected by them. She doesn't feel that she wants to work on mending the relationship, but more of working on herself to deal with how she feels rejected by them. We discussed follow up plans for tx after discharge. She asked if she could be referred to OPS. I told her I would discuss it with the team. She also would like individual therapy through [facility]. She isn't attending alot of groups on the unit, she feels that some of the other patients are too irritating for her and that then takes away from her engaging in the therapy. She states this often happens in groups and she would prefer one on one. I gave her the number to contact [facility] to see if she can schedule another appt. with them, due to missing the one she had scheduled on Wednesday. She called, but needed to leave a message.
--- NOTE | 2016-09-30 18:53 | CP SOUTH PROGRESS NOTE PSYCH ---
Psych (Inpt) Progress Note Progress Note Progress Note: I discussed this patient's progress to date, current mental status, treatment process in the context of the treatment plan, and discharge planning with staff/ team in the daily morning inpatient team meeting. I also met with the patient myself in individual session. SUBJECTIVE: "I was okay in the morning, but now I'm having all kinds of suicidal thoughts." OBJECTIVE: Current Medications Sig/Fatmata Start time Last Medication Dose Route Stop Time Status Admin Aripiprazole 10 MG AT BEDTIME 09/30 2199 UNVr PO Aripiprazole 5 MG 08,09/28 2000 DC 09/30 PO 0748 Aripiprazole 2 MG Q4 HRS NEEDED PRN 09/28 1545 AC 09/29 PO 1312 Clotrimazole 1 EULALIO AT BEDTIME 09/27 1500 AC 09/29 VAG 2206 Escitalopram Oxalate 10 MG 0800 09/30 0800 AC 09/30 PO 0748 Gabapentin 300 MG AT BEDTIME 09/29 2200 AC 09/29 PO 2206 Gabapentin 300 MG Q6P PRN 09/29 0915 AC PO Ibuprofen 600 MG Q6P PRN 09/27 1130 AC 09/30 PO 1417 Insulin Aspart 0 TIDAC/HS 09/27 1700 AC 09/30 SC 1716 Insulin Detemir 26 UNITS BID 09/29 1000 AC 09/30 SC 1109 Metformin HCl 1,000 MG 0800,1700 09/27 1700 AC 09/30 PO 0747 Multivitamins 1 TAB DAILY 09/26 2140 AC 09/30 PO 0748 Nicotine 2 MG Q2P PRN 09/27 1130 AC 09/30 PO 0657 Nicotine 21 MG DAILY 09/27 1127 AC 09/30 TOP 0747 Ondansetron HCl 4 MG ONCE ONE 09/30 1715 DC 09/30 PO 09/30 1716 1718 Trazodone HCl 50 MG AT BEDTIME NEED.. 09/26 2145 AC PO Vital Signs Date Time Temp Pulse Resp B/P Pulse O2 O2 Flow FiO2 Ox Delivery Rate 09/30 1222 100 113/71 04 1208 100 113/71 09/30 0746 97.3 98 119/70 09/29 2002 98.2 99 144/96 ASSESSMENT: Patient presented this morning in a calm and cooperative manner. Apparently euthymic mood. At times during the day she states that she is feeling fine and is not having suicidal thoughts, and then occasionally states that she is having suicidal thoughts. Nevertheless, states that she feels that she is making progress, and is feeling better each day. She is looking forward to being back on Abilify 15 mg daily, and would also like to increase her Lexapro from 10 mg to 20 mg daily. Patient is forward thinking. She has decided to move back to live with her friend and family. 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 Depression:4/10; Anxiety:0/10 (with 10 the worst.) Denies homicidal ideation, auditory hallucinations, visual hallucinations, paranoid ideation. Reports intermittent, passive suicidal thoughts. Patient states and also believes that she will not kill herself. Reports sleeping well at night, states her appetite is good. Speech is well articulated, goal-directed, average in rate, volume and tone. Pleasant and cooperative. Alert and oriented 3. The patient understands the risks/benefits/side effects of the medication and is agreeable to continue taking them. PLAN: Abilify 15 mg daily. Continue with other current management as patient is improving. Continue to provide support and encouragement.
[2016-09-30 19:39] VITALS: BP 129/77
--- NOTE | 2016-09-30 20:47 | NUR ---
PT IS VISIBLE ON UNIT, WATCHING TV IN LOUNGE AND SOCIALIZING. VERY PLEASANT AND COOPERATIVE WITH STAFF. NO COMPLAINTS OR SI REPORTED. PT HAS A STABLE MOOD AND FULL RANGE AFFECT.
--- NOTE | 2016-10-01 06:23 | NUR ---
PT WITH BLOOD SUGAR LEVEL OF 238 AT HS. PT APPEARED TO SLEEP. PT DEFIANTLY RESISTANT TO ATTENDING GROUPS.
[2016-10-01 07:40] VITALS: BP 118/66
--- NOTE | 2016-10-01 08:13 | PN- Diabetes ---
Assessment/Plan Assessment: She is a 41 y/o female, hx of gestational diabetes, was diagnosed with DM type 2 approximately 3 months ago, was on diet control. In addition, she has had hx of PTSD and depression. She was admitted to after she overdosed Tylenol. However, in ER, her acetaminopen level was < 10, both AST and ALT were in the normal range. Urine toxi screening showed postive for Cannabis.Her glucose level was > 400 before lunch and her DM is not controlled. Levemir was increased to 26 units twice a day; metformin 1000 mg twice a day was held yesterday due to GI symptoms; she took metformin this morning. So far she has been okay. Novolog coverage before meals was adjusted and she is on Novolog coverage at bedtime as well. Her FSGs were 319, 217, 159, 228 and 194. Plan: continue the current DM regimen for now; if she is stable for discharge, the discharge plan for DM ---metformin ER 500 mg x 2 tablets twice a day ---Levemir 26 units twice a day; ---Novolog coverage before meals -- same as inpatient; ---monitor FSGs x 4 times a day; ---f/u in office after discharge. Subjective Subjective: She feels better and would like to go home today. Objective Last 24 Hrs of Vital Signs/I&O Vital Signs Date Time Temp Pulse Resp B/P Pulse O2 O2 Flow FiO2 Ox Delivery Rate 10/01 0740 97.1 90 118/66 09/30 1939 97.4 97 129/77 09/30 1222 100 113/71 09/30 1208 100 113/71
--- NOTE | 2016-10-01 11:50 | CP SOUTH PROGRESS NOTE PSYCH ---
Psych (Inpt) Progress Note Progress Note Progress Note I discussed this patient's progress to date, current mental status, treatment process in the context of the treatment plan, and discharge planning with staff/ team in the daily morning inpatient team meeting. I also met with the patient myself in individual session. SUBJECTIVE: "I'm feeling okay. I've things to live for, my daughter, my career, my hobbies. 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." OBJECTIVE: Current Medications Sig/Fatmata Start time Last Medication Dose Route Stop Time Status Admin Aripiprazole 15 MG 0800 10/01 1100 AC 10/01 PO 1053 Aripiprazole 10 MG AT BEDTIME 09/30 220 DC 09/30 PO 2114 Aripiprazole 5 MG 08,09/28 2000 DC 09/30 PO 0748 Aripiprazole 2 MG Q4 HRS NEEDED PRN 09/28 1545 AC 09/29 PO 1312 Clotrimazole 1 EULALIO AT BEDTIME 09/27 1500 AC 09/30 VAG 2234 Escitalopram Oxalate 10 MG 0800 09/30 0800 AC 10/01 PO 0747 Gabapentin 300 MG AT BEDTIME 09/29 2200 AC 09/30 PO 2115 Gabapentin 300 MG Q6P PRN 09/29 0915 AC PO Ibuprofen 600 MG .STK-MED ONE 09/30 1412 DC PO 09/30 1413 Ibuprofen 600 MG Q6P PRN 09/27 1130 AC 10/01 PO 0602 Insulin Aspart 0 TIDAC/HS 09/27 1700 AC 10/01 SC 0744 Insulin Detemir 26 UNITS BID 09/29 1000 AC 10/01 SC 1050 Metformin HCl 1,000 MG 0800,1700 09/27 1700 DC 10/01 PO 0747 Multivitamins 1 TAB DAILY 09/26 2140 AC 10/01 PO 0746 Nicotine 2 MG Q2P PRN 09/27 1130 AC 09/30 PO 0657 Nicotine 21 MG DAILY 09/27 1127 AC 10/01 TOP 0746 Ondansetron HCl 4 MG Q4 HRS NEEDED PRN 10/01 1100 AC PO Ondansetron HCl 4 MG ONCE ONE 09/30 1715 DC 09/30 PO 09/30 1716 1718 Trazodone HCl 50 MG AT BEDTIME NEED.. 09/26 2145 AC PO Vital Signs Date Time Temp Pulse Resp B/P Pulse O2 O2 Flow FiO2 Ox Delivery Rate 10/01 0740 97.1 90 118/66 09/30 1939 97.4 97 129/77 09/30 1222 100 113/71 09/30 1208 100 ASSESSMENT: Patient reports that she is doing better "mildly okay." States that she feels ready for discharge today. However after conversation today with myself and psych social worker Nilsa Ferrari, we have all agreed that the patient should wait one more day for discharge tomorrow morning, in light of serious suicidal attempt prior to arrival. Dr. Sanders was in today for continued evaluation of diabetes. Patient has been reporting nausea and diarrhea after starting diabetes medications. Please refer to Dr. Sanders's notes for additional information. Zofran ODT ordered as needed for nausea. Depression:1/10; Anxiety:0/10 (with 10 the worst.) Denies suicidal ideation, homicidal ideation, auditory hallucinations, visual hallucinations, paranoid ideation. Patient states and also believes that she will not kill herself. Patient states that her primary protective factor is her daughter. 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 Reports that she slept well last night, after taking Neurontin at bedtime. Denies having any nightmares. Reports that her appetite is fine. Speech is well articulated, goal-directed, average in rate, volume and tone. Calm, cooperative, pleasant, logical. Alert and oriented 3. The patient understands the risks/benefits/side effects of the medication and is agreeable to continue taking them. PLAN: Abilify 15 mg daily. Zofran as needed for nausea. Anticipate discharge tomorrow. Continue with other current management as patient is improving. Continue to provide support and encouragement.
[2016-10-01 12:09] VITALS: BP 117/63
--- NOTE | 2016-10-01 13:04 | NUR ---
DR TREVINO NOTIFIED OF PTS NAUSEA.PT WILL HAVE METFORMIN CHANGED TO EXTENDED RELEASE UPON DISCHARGE. METFORMIN IS DISCONTINUED AT THIS TIME
--- NOTE | 2016-10-01 14:08 | NUR ---
PT DOES NOT ATTEND GROUPS. SHE STATED SHE HAS BEEN GOING TO GROUPS FOR YEARS AND NO LONGER FINDS THEM HELPFUL. SHE EXPECTS DISCHARGE THIS WEEK AND WHEN ASKED SHE DENIED ANY THOUGHTS OF SUICIDE OR SELF HARM
--- NOTE | 2016-10-01 14:19 | NUR ---
PT NOT VISIBLE MUCH IN THE [place]. SHE HAS NOT BEEN IN ANY GROUPS TODAY, BUT DOES INTERACT WITH PEERS. SHE DID EXPERIENCE SOME NAUSEA, THE NURSE WAS NOTIFIED ABOUT IT. WHEN IN THE [place] PT HAS BEEN COOPERATIVE WITH STAFF DIRECTION, AND DENIES HAVING THOUGHTS TO HURT HERSELF WHEN ASKED.
--- NOTE | 2016-10-01 14:26 | SOCIAL WORKER PROG NOTE PSYCH ---
Social Work Progress Note Progress Note Agapito Gould APRN and I met with Aranza together this morning. Aranza is feeling better today. Denies any SI. She is struggling with some sickness related to taking the Metformin. She is nervous about taking it, due to it causing upset stomach and vommitting. Agapito will prescribe some Zofran to help. Reports little depression today and no anxiety. Slept well. Talked about protective factors to killing herself, which are her daughter, career, poetry, crocheting. 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 I informed that I did set up follow up appts. with our outpatient program. She was happy about that. She will follow up today to continue to get an appt. with [facility]. She is advocating to leave today. Agapito and I informed her that we are looking at discharge for tomorrow. Aranza informed me later that she was able to get an appt. with [facility] for 10/12/16 at 2pm with Kayla Melgar.
[2016-10-01 16:17] VITALS: BP 138/77
--- NOTE | 2016-10-01 17:12 | NUR ---
THOUGH "SCARED" AND RELUCTANT, PT SUCCESSFULLY DAVI UP AND SELF ADMINISTERED NOVOLOG 10 UNITS TO RIGHT ABDOMEN WITH EDUCATION AND SUPERVISION. POSITIVE REINFORCEMENT PROVIDED.
[2016-10-01 19:39] VITALS: BP 134/80
--- NOTE | 2016-10-01 22:03 | NUR ---
PT IS VISIBLE ON UNIT BUT IS WITHDRAWN, HAS MINIMAL INTERACTION WITH PEERS AND STAFF. ATTENDED WRAP UP MEETING. AT TIMES PT WILL ISOLATE IN ROOM. NO SI REPORTED. PT STILL REPORTING PAIN. PT HAS AN ANXIOUS MOOD AND FLAT AFFECT.
--- NOTE | 2016-10-01 22:10 | NUR ---
PT IS VISIBLE ON UNIT, VERY SOCIAL WITH PEERS AND STAFF. COOPERATIVE AND COMPLIANT. REFUSED WRAP UP THIS EVENING. NO COMPLAINTS OR SI REPORTED. PT HAS A STABLE MOOD AND FULL RANGE AFFECT.
[2016-10-02 07:47] VITALS: BP 122/69
--- NOTE | 2016-10-02 08:19 | CP SOUTH PROGRESS NOTE PSYCH ---
Psych (Inpt) Progress Note Progress Note Progress Note: I discussed this patient's progress to date, current mental status, treatment process in the context of the treatment plan, and discharge planning with staff/ team in the daily morning inpatient team meeting. I also met with the patient myself in individual session. SUBJECTIVE: "I'm excited to see my baby. I'm even excited see my family. I'm excited to get back to work." OBJECTIVE: Current Medications Sig/Fatmata Start time Last Medication Dose Route Stop Time Status Admin Aripiprazole 15 MG 0800 / 1100 AC 10/02 PO 0754 Aripiprazole 10 MG AT BEDTIME 09/30 2200 DC 09/30 PO 2114 Aripiprazole 2 MG Q4 HRS NEEDED PRN 09/28 1545 AC 09/29 PO 1312 Clotrimazole 1 EULALIO AT BEDTIME 09/27 1500 DC 09/30 VAG 2234 Escitalopram Oxalate 10 MG 0800 / 0800 AC 10/01 PO 0747 Gabapentin 300 MG AT BEDTIME 09/29 2200 AC 10/01 PO 2159 Gabapentin 300 MG Q6P PRN 09/29 0915 AC 10/01 PO 1750 Ibuprofen 600 MG .STK-MED ONE 10/01 1202 DC PO 10/01 1203 Ibuprofen 600 MG Q6P PRN 09/27 1130 AC 10/01 PO 1209 Insulin Aspart 0 TIDAC/HS 09/27 1700 AC 10/02 SC 0754 Insulin Detemir 26 UNITS BID 09/29 1000 AC 10/02 SC 0751 Metformin HCl 1,000 MG 0800,1700 09/27 1700 DC 10/01 PO 0747 Multivitamins 1 TAB DAILY 09/26 2140 AC 10/02 PO 0754 Nicotine 2 MG Q2P PRN 09/27 1130 AC 09/30 PO 0657 Nicotine 21 MG DAILY 09/27 1127 AC 10/02 TOP 0754 Ondansetron HCl 4 MG Q4 HRS NEEDED PRN 10/01 1100 AC PO Trazodone HCl 50 MG AT BEDTIME NEED.. 09/26 2145 AC PO Vital Signs Date Time Temp Pulse Resp B/P Pulse O2 O2 Flow FiO2 Ox Delivery Rate 10/02 746 97.7 84 122/69 10/01 1939 97.4 94 134/80 04/06 1617 98 138/77 04/ 1209 96 117/63 ASSESSMENT: Patient reports that she feels safe and ready for discharge. Tolerating her medications well, without complaint, apparently to good effect. Patient was seen this morning by Dr. Sanders to review discharge instructions for care of diabetes. Patient verbalized understanding of her appointments at [facility] outpatient, with endocrinology, with primary care, visiting nurse and therapy. Patient declines to attend [facility], stating that she feels that outpatient therapy would be most appropriate for her. Depression:0/10; Anxiety:0/10 (with 10 the worst.) "I don't do anxiety." Denies suicidal ideation, homicidal ideation, auditory hallucinations, visual hallucinations, paranoid ideation. Patient states and also believes that he will not kill himself. Speech is well articulated, goal-directed, average in rate, volume and tone. Cooperative, logical. Alert and oriented 3. Patient reports sleeping well at night. States her appetite is good. The patient understands the risks/benefits/side effects of the medication and is agreeable to continue taking them. PLAN: Discharge today. Continue with current management as patient is improving. Continue to provide support and encouragement.
--- NOTE | 2016-10-02 08:23 | DISCHARGE SUMMARY REPORT-PSYCH ---
Visit Information Visit Dates/Diagnosis' Admission Date: 09/26/16 Discharge Date: 10/02/16 Reason for Admission: Patient self presented in the ED. She reported that she took a bottle of Tylenol PM that morning with the intent to not wake up again. Labs obtained while in ED do not indicate tylenol toxicity. Psy Discharge Primary Diag: Major Depressive d/o Psy Discharge Secondary Diag: PTSD; New onset IDDM; hyperlipidemia; hx bronchitis. Hospital Course Significant Lab Findings: Lab Albumin 2.9 g/dL L 09/28/16 0615 Carbon Dioxide 18 mmol/L L 09/28/16 0615 Free T4 1.35 ng/dL 09/28/16 0615 Hemoglobin A1c 11.9 % H 09/28/16 0615 Sodium 130 mmol/L L 09/28/16 0615 TSH 1.460 uIU/mL 09/28/16 0615 Urine Cannabis Screen 73.70 NG/ML H 09/26/16 2009 Course Complications: Patient was treated for diabetes mellitus by Dr. Sanders. Please refer to her notes for additional information. Consultations: Patient was seen for admission history and physical by Dr. Cole. Please refer to his note for additional information. Allergies: Coded Allergies: NO KNOWN ALLERGIES (07/15/16) Hospital Course/TX Response: The patient was monitored on the unit for safety, depression, mood stability, and suicidal ideation. She participated in multimodal treatments on the unit. She was medicated with Lexapro for anxiety, Abilify as an adjunct to the antidepressant and for mood stability, and gabapentin for discomfort and anxiety at bedtime. He reports that she tolerated medications well, to good effect. Today, the day of discharge, she reports that she feels safe and ready for discharge. Tolerating her medications well, without complaint, apparently to good effect. Patient was seen this morning by Dr. Sanders to review discharge instructions for care of diabetes. Patient verbalized understanding of her appointments at [facility] outpatient, with endocrinology, with primary care, visiting nurse and therapy. Patient declines to attend [facility], stating that she feels that outpatient therapy would be most appropriate for her. Depression:0/10; Anxiety:0/10 (with 10 the worst.) "I don't do anxiety." Denies suicidal ideation, homicidal ideation, auditory hallucinations, visual hallucinations, paranoid ideation. Patient states and also believes that she will not kill himself. Speech is well articulated, goal-directed, average in rate, volume and tone. Cooperative, logical. Alert and oriented 3. Patient reports sleeping well at night. States her appetite is good. The patient understands the risks/benefits/side effects of the medication and is agreeable to continue taking them. Patient reports tolerating medications well, without complaint. States she feels safe and ready for discharge. Discharge HBIPS - Tobacco Use Treatment Offered Post DC Medications Offered: Script Given-See Med List Post DC Tobacco Treatment Plan: [facility] Tx Pgm Program Appt Date: 10/14/16 Program Appt Time: 1600 - EtOH/Drug Use D/O Treatment Offered Post DC Medications Offered: Ref Med EtOH/Drug Use D/O Post DC EtOH/SubAbuse TX Plan: Refused Post DC Tx Pgm Metabolic Screening - Screen if on a Neuroleptic Medication - Metabolic screening should include: - Blood Pressure, BMI, Glucose or Hgb A1c, & a - Lipid profile from within the past 365 days. Metabolic Screening () Not Applicable, patient not on a neuroleptic. OR ([x]) Patient on a neuroleptic(s) . Enter below results for Glucose or Hemoglobin A1C, and lipid panel if obtained during the last 365 days. BMI: 38.100 Blood Pressure: 122/69 Laboratory Results (If applicable): Lab Cholesterol 296 MG/DL H 07/15/16 1033 Cholesterol/HDL Ratio 11 % H 07/15/16 1033 HDL Cholesterol 27 mg/dL L 07/15/16 1033 Hemoglobin A1c 11.9 % H 09/28/16 0615 Triglycerides 432 mg/dL H 07/15/16 1033 Discharge Instructions General Discharge Information Discharge Medications: Discharge Medications- (Dose, route, freq, indication): START taking these NEW Home Medications: Nicotine (Nicotine Dose: On the skin, DAILY for Qty: 30 Called in to Patch) 21 MG/24 HOUR 21 Milligram Smoking Cessation Refills: 0 Pharm 1 PATCH.TD24 Gabapentin Dose: ORAL, AT BEDTIME for Qty: 14 Called in to (Gabapentin) 300 MG 300 [facility] DISCOMFORT & ANXIETY Refills: 0 Pharm 1 CAPSULE Last Taken:10/01/16 Time:10pm Escitalopram Oxalate Dose: ORAL, DAILY @8 AM for Qty: 14 Called in to (Lexapro) 10 MG 10 Milligram DEPRESSION AND ANXIETY Refills: 0 Pharm 1 TABLET Last Taken:10/02/16 Time:8am Aripiprazole Dose: ORAL, DAILY @8 AM for Qty: 14 Called in to (Abilify) 15 MG 15 Milligram CLEAR THOUGHTS Refills: 0 Pharm 1 TABLET Last Taken:10/02/16 Time:8am Multivitamin (One Dose: ORAL, DAILY for Qty: 30 Called in to Daily Multivitamin) 1 Tablet SUPPLEMENT Refills: 0 Pharm 1 1 EACH TABLET Last Taken:10/02/16 Time:8am Insulin Detemir Dose: Inject into fatty Qty: [address] Sanders (Levemir Flextouch) 1 Unit tissue, BEFORE MEALS AND Refills: 0 100 UNIT/ML (3 ML) AT BEDTIME for DIABETES INSULN.PEN Prescription being called in by Dr. Sanders. Follow directions as per Dr. Sanders. Last Taken:10/02/16 Time:8am Insulin Aspart, Dose: Inject into fatty Qty: [address] Sanders Recombinant (Novolog 1 Units tissue, BEFORE MEALS AND Refills: 0 Flexpen) 100 UNIT/ML AT BEDTIME for DIABETES INSULN.PEN Prescription being called in by Dr. Sanders. Follow directions as per Dr. Sanders. Last Taken:10/02/16 Time:8am 1: [id number], [address] [place] [address] Your Preferred Pharmacy [id number] [address] [place] [address] Multiple Neuroleptics: (x) Not Applicable OR Document below three failed attempts at monotherapy, or a plan to taper to monotherapy, or augmentation of Clozapine. () Patient's Diet: Consistent carbohydrate Patient's Activity: No restrictions DC Disposition: Patient will be returning to stay with her parents and daughter temporarily, and then will move back into the home of her friend where she had been staying for the past few months. Recommendations: Follow-up with your doctors and therapy appointments. Follow-up with visiting nurse. Take medications as directed. Referred To: Post Discharge Referrals OUTPATIENT PSYCHIATRY Service Date: 10/13/16 [address] [place] [address] Notes: Intake at outpatient psychiatry 10/13/16 2:45pm [address] [place] [address] OUTPATIENT PSYCHIATRY Service Date: 10/22/16 [address] [place], [place] [id number] Notes: Med Evaluation at outpatient psychiatry with Heidi Jurado APRN on 10/22/16 8:30am [address] [place], [place] [phone] Provider Referral Service Date: 10/12/16 Referred To: [[facility]] Notes: [facility] appt. 10/12/16 2pm with Kayla Melgar [address] [place] [address] [address] [place], [place] [phone] Provider Referral Service Date: 10/16/16 Referred To: [facility] Notes: [facility] Dr[facility] Carrillo 10/16/16 4:15pm [address] [facility] [place], [place] Provider Referral Service Date: 10/20/16 Referred To: [facility] Notes: [facility] appt. with Rachele Keating APRN 10/20/16 9:15am [address] [place], [place] [phone] Copies To: HEIDI JURADO APRN; [facility]
[2016-10-02] MEDS ORDERED: NICOTINE PATCH1 EAC3 TOP (08:25)
--- NOTE | 2016-10-02 08:55 | PN- Diabetes ---
Assessment/Plan Assessment: She is a 41 y/o female, hx of gestational diabetes, was diagnosed with DM type 2 approximately 3 months ago, was on diet control. In addition, she has had hx of PTSD and depression. She was admitted to after she overdosed Tylenol. However, in ER, her acetaminopen level was < 10, both AST and ALT were in the normal range. Urine toxi screening showed postive for Cannabis.Her glucose level was > 400 before lunch and her DM is not controlled. Levemir was increased to 26 units twice a day; metformin 1000 mg twice a day was discontinued yesterday due to GI symptoms; Novolog coverage before meals was adjusted and she is on Novolog coverage at bedtime as well. Her FSGs [id number], 255, 232, 204 and 281. Patient is going home with visiting nurse services. Plan: Discharge plan for DM: 1. Levemir 26 units twice a day; 2. Novolog coverage before meals; 3. restart metformin ER 500 mg twice a day with brweakfast and with dinner; 4. As per psych team, the social sciences chair will try to ask visiting nurse to go to her home for insulin pen teaching. 5. f/u in office. 6. I will send in Rxs of DM medications and DM supplies to her pharmacy. Subjective Subjective: She is going home today. Objective Last 24 Hrs of Vital Signs/I&O Vital Signs Date Time Temp Pulse Resp B/P Pulse O2 O2 Flow FiO2 Ox Delivery Rate 10/02 0747 97.7 84 122/69 / 1939 97.4 94 134/80 / 1617 98 138/77 04/06 1209 96 117/63
[2016-10-02] MEDS ORDERED: GABAPENTIN300 M2 PO (09:12)
[2016-10-02] MEDS ORDERED: LEXAPRO10 M1 PO (09:13)
[2016-10-02] MEDS ORDERED: ABILIFY15 M1 PO (09:13)
[2016-10-02] MEDS ORDERED: LEVEMIR FL100 UNIT/1 SC (09:14)
[2016-10-02] MEDS ORDERED: NOVOLOG FL100 UNIT/1 SC (09:15)
[2016-10-02] MEDS ORDERED: ONE DAILY MULT1 EAC2 PO (09:15)
--- NOTE | 2016-10-02 09:43 | NUR ---
[place] be [place] [facility] [place] [facility]. Mood is stable, full range of affect. denies thoughts of self harm when asked. given education on suicide prevention, diabetes and depression. visiting nurse is being set up for education on new diabetic management.
--- NOTE | 2016-10-02 10:43 | SOCIAL WORKER PROG NOTE PSYCH ---
Social Work Progress Note Progress Note Aranza is ready to discharge today. Reports feeling well. Feels stable. I asked if she would like a visiting nurse to be set up to help her with the diabetes management initially? She is agreeable for some support until she feels she has it under control. She will also need an appt. scheduled with Dr. Sanders's office. Called and scheduled an appt. for her to be seen on 10/20 9:15am with Rachele Keating APRN. This was the first available appt. and Dr. Sanders was not available until a later date. I also confirmed Aranza's existing appt. with Dr. Carrillo (PCP) for 10/16 4:15pm. Called [facility] to do a referral for visiting nurse for diabtes instruction/ education. After several back and forth phone calls between 8:30am and noon. I was informed that they can see Aranza, but not until Wednesday. By the time this information was received she had left the hospital. I called her to tell her this information.
== END 2016-10-02 12:06 | DRG 754 ==
LOC: ERH 17:42 → ERHI 22:52 → CP SOUTH 22:52 → ENPENDDIS 22:52 → CP SOUTH 23:10
PROVIDERS: Emergency Medicine; ADMIT Psychiatry & Neurology Addiction Medicine
DX: F32.9 Major depressive disorder, single episode, unspecified (principal); F43.10 Post-traumatic stress disorder, unspecified; E11.9 Type 2 diabetes mellitus without complications; E78.5 Hyperlipidemia, unspecified
CPT/HCPCS: 36415; 80307; 82436; 86376; 86800; 87070; 93005; 93010; 96372; 96374; G0480; J0401; J1815; J3101; J3490

== ENCOUNTER 2016-10-29 07:50 | Emergency (ER) | payer OTHER ==
[~2016-10-29] VITALS: Ht 172.7 cm; Wt 90.7 kg
[~2016-10-29 07:50] MED LIST changes: +ABILIFY20 M1 PO; +GABAPENTIN300 M2 PO; +LEVEMIR FL100 UNIT/1 SC; +NOVOLOG FL100 UNIT/1 SC; +ONE DAILY MULT1 EAC2 PO
--- NOTE | 2016-10-29 08:01 | ED PSYCHIATRIC COMPLAINT ---
See Addendum History of Present Illness General Chief Complaint: Psychiatric Related Complaint Stated Complaint: PT STATES SHE IS SI Source: patient, old records Exam Limitations: no limitations Vital Signs & Intake/Output Vital Signs & Intake/Output Vital Signs Date Time Temp Pulse Resp B/P B/P Pulse O2 O2 Flow FiO2 Mean Ox Delivery Rate 10/29 1823 98.2 90 18 154/74 97 Room Air / 1623 98.2 88 18 164/70 98 Room Air 10/29 1430 97.0 74 112/66 05/04 1339 98.2 78 18 110/64 96 Room Air / 1125 98.3 88 20 132/60 100 Room Air / 0753 97.0 81 18 124/81 98 Room Air Allergies Coded Allergies: NO KNOWN ALLERGIES (07/15/16) Reconcile Medications Aripiprazole (Abilify) 15 MG TABLET 15 MG PO 0800 CLEAR THOUGHTS Escitalopram Oxalate (Lexapro) 10 MG TABLET 10 MG PO 0800 DEPRESSION AND ANXIETY Gabapentin 300 MG CAPSULE 300 MG PO AT BEDTIME DISCOMFORT & ANXIETY Insulin Aspart, Recombinant (Novolog Flexpen) 100 UNIT/ML INSULN.PEN 1 U SC TIDAC/HS DIABETES Prescription being called in by Dr. Sanders. Follow directions as per Dr. Sanders. Insulin Detemir (Levemir Flextouch) 100 UNIT/ML (3 ML) INSULN.PEN 26 U SC BID DIABETES (Reported) Multivitamin (One Daily Multivitamin) 1 EACH TABLET 1 TAB PO DAILY SUPPLEMENT Nicotine (Nicotine Patch) 21 MG/24 HOUR PATCH.TD24 21 MG TOP DAILY Smoking Cessation Triage Note: PT TO ED FOR +SI, PT STATING "I WANT TO CUT MY WRISTS" PT REPORTING SHE HAS BEEN ADMITTED TO [facility] 3X PREVIOUSLY FOR SAME, LAST ADMISSION September. PT DENIES ETOH/DRUG USE. Triage Nurses Notes Reviewed? yes : No Patient currently breastfeeds: No HPI: Patient is a 41-year-old female presents complaining of severe depression and suicidal ideation. Patient reports suicidal ideation for the past 2-3 days. Patient having thoughts of cutting her wrists. Patient reports that she went to a hotel last night, she fill the bathtub with water and was going to cut her wrists with a sharp knife, but decided to come to the emergency department instead. Patient has attempted suicide numerous times previously by cutting herself, placing a plastic bag over her head, by overdose. Patient has been admitted multiple times psychiatrically, last admission was at the beginning of September at [facility]. Patient reports that she ran out of her psychiatric medications Lexapro and Abilify approximately 3 weeks ago. Patient had an appointment scheduled today for psychiatric intake, but reports she would not have her medications prescribed to her until next week. Patient reports she has been compliant with her diabetes medications. Patient smokes cannabis "as much as possible". Smokes 1.5 packs of cigarettes per day. Patient denies alcohol use, cocaine use, heroin use, suicide attempt, recent trauma. (SHERICE PECK) Past History Travel History Traveled to [facility] past 21 day No Medical History Any Pertinent Medical History? see below for history Neurological: NONE EENT: NONE Cardiovascular: HIGH CHOLESTEROL Respiratory: bronchitis Gastrointestinal: NONE Hepatic: NONE Renal: NONE Musculoskeletal: NONE Psychiatric: depression, substance abuse, ptsd Endocrine: diabetes Blood Disorders: NONE Cancer(s): NONE SPECIAL PROCEDURES NURSE/Reproductive: NONE History of MRSA: No History of VRE: No History of CDIFF: No Influenza Vaccine: 05/08/11 Surgical History Surgical History: non-contributory Psychosocial History Who do you live with Family What is your primary language German Tobacco Use: Never used ETOH Use: occasional use Illicit Drug Use: denies illicit drug use Family History Family History, If Any: MOTHER Relation not specified for: FH: diabetes mellitus Hx Contributory? No (SHERICE PECK) Review of Systems Review of Systems Constitutional: Denies: chills, fever. EENTM: Reports: no symptoms. Respiratory: Denies: cough, short of breath. Cardiovascular: Denies: chest pain. GI: Denies: abdominal pain, nausea, vomiting. Genitourinary: Reports: no symptoms. Musculoskeletal: Reports: no symptoms. Skin: Reports: no symptoms. Neurological/Psychological: Reports: see HPI. Hematologic/Endocrine: Reports: no symptoms. Immunologic/Allergic: Reports: no symptoms. (SHERICE PECK) Physical Exam Physical Exam General Appearance: well developed/nourished, alert, awake, obese Head: atraumatic, normal appearance Eyes: Bilateral: normal appearance, PERRL, EOMI. Ears, Nose, Throat: normal pharynx, normal ENT inspection, hearing grossly normal Neck: normal inspection, supple, full range of motion Respiratory: normal breath sounds, chest non-tender, no respiratory distress, lungs clear Cardiovascular: regular rate/rhythm (no appreciable murmur) Gastrointestinal: soft, non-tender Extremities: normal range of motion, no signs of trauma Neurological/Psychiatric: no motor/sensory deficits, awake, alert, calm, at times inappropriate affect, suicidal ideation Behavoir/Eye Contact/Speech: cooperative, normal speech, good eye contact Thoughts/Hallucinations: no apparent hallucination Skin: intact, normal color, warm/dry SAD PERSONS Done? seen by beater engineer (MILTON JC,SHERICE) Progress Differential Diagnosis: drug intoxication, drug overdose, drug withdrawal, suicide attempt, suicidal ideation, personality disorder, mood disorder, psychosis Plan of Care: Orders Procedure Date/time Status Consistent Carbohydrate 1 10/29 L Active ED CRISIS PSYCH CONSULT 10/29 826 Active FingerStick- Glucose 10/29 800 Active URINE 10/30 799 Complete URINE DRUG SCREEN FOR ER ONLY 10/30 799 Complete ETHANOL 10/30 799 Complete COMPREHENSIVE METABOLIC PANEL 10/30 799 Complete CBC WITHOUT DIFFERENTIAL 10/30 799 Complete Continuous Observation Monitor 10/29 0759 Active Laboratory Tests 10/29/16 0836: Anion Gap 11, Estimated GFR > 60, BUN/Creatinine Ratio 13.8, Glucose 168 H, Calcium 8.9, Total Bilirubin 0.4, AST 23, ALT 32, Alkaline Phosphatase 72, Total Protein 7.0, Albumin 3.7, Globulin 3.3, Albumin/Globulin Ratio 1.1, CBC w Diff NO MAN DIFF REQ, RBC 4.42, MCV 80.0 L, MCH 26.6 L, RDW 15.7 H, MPV 8.2, Gran % 63.2, Lymphocytes % 31.0, Monocytes % 4.6, Eosinophils % 0.6, Basophils % 0.6, Absolute Granulocytes 5.0, Absolute Lymphocytes 2.4, Absolute Monocytes 0.4, Absolute Eosinophils 0.1, Absolute Basophils 0, PUBS MCHC 33.3, Serum Alcohol < 10.0 10/29/16 0834: Urine Opiates Screen < 100.00, Methadone Screen < 40, Barbiturate Screen < 60, Ur Phencyclidine Scrn < 6.00, Amphetamines Screen < 100, U Benzodiazepines Scrn < 85, Urine Cocaine Screen < 50, Urine Cannabis Screen > 80.00 H, Urine Test NEGATIVE Patient evaluated by beater engineer. Plan for patient to remain in the emergency department for crisis re-evaluation. (SHERICE PECK) Hand-Off Endorsed To: ANDREA WEST MD Endorsed Time: 1924 Pending: other (crisis re-evaluation) (SHERICE PECK) Departure Departure Disposition: STILL A PATIENT Condition: Stable Clinical Impression Primary Impression: Major depressive disorder Secondary Impressions: Cannabis use, unspecified with psychotic disorder, unspecified Referrals: BASIL FRIEDMAN MD (PCP/Family) Departure Forms: Customer Survey General Discharge Information (SHERICE PECK) Departure Comments 10/29/16 10 AM The patient was signed out to me by Dr. Pope. She is pending evaluation and disposition by crisis. PA/ORTHOPEDIC BRACE MAKER Co-Sign Statement Statement: ED Attending supervision documentation- [] I saw and evaluated the patient. I have also reviewed all the pertinent lab results and diagnostic results. I agree with the findings and the plan of care as documented in the PA's/ORTHOPEDIC BRACE MAKER's documentation. [x] I have reviewed the ED Record and agree with the PA's/ORTHOPEDIC BRACE MAKER's documentation. [] Additions or exceptions (if any) to the PAs/ORTHOPEDIC BRACE MAKER's note and plan are summarized below: [] (JOHN APPIAH DO
[2016-10-29] MEDS ORDERED: LEVEMIR FL100 UNIT/1 SC (08:28)
[2016-10-29 08:55] LABS: ABSOLUTE BASOPHIL COUNT 0 /CUMM (0.0-0.2); ABSOLUTE EOSINOPHIL COUNT 0.1 /CUMM (0.0-0.7); ABSOLUTE LYMPH COUNT 2.4 /CUMM (1.2-3.4); ABSOLUTE MONOCYTE COUNT 0.4 /CUMM (0.10-0.60); BASOPHIL % 0.6 % (0.0-2.0); EOSINOPHIL % 0.6 % (0-5); GRANULOCYTE % 63.2 % (42.2-75.2); HEMATOCRIT 35.4 % (37-47); MEAN CORPUSCULAR HGB 26.6 PG (27.0-31.0); MEAN CORPUSCULAR HGB CONC 33.3 G/DL (33.0-37.0); MEAN PLATELET VOLUME 8.2 FL (7.4-10.4); PLATELET COUNT 265 /CUMM (130-400); RBC DISTRIBUTION WIDTH 15.7 % (11.5-14.5); RED BLOOD CELL CT 4.42 /CUMM (4.20-5.40); WHITE BLOOD CELL COUNT 7.9 /CUMM (4.8-10.8)
--- NOTE | 2016-10-29 19:29 | ED PSYCH CRISIS CONSULTATION ---
See Addendum Crisis Consult Basic Assessment Date of Consult: 10/29/16 Responsible Person/Accompanied By: By herself Insurance Authorization: Insurance #1: Insurance name: PHYLLIS Aguilar C&A Phone number: Policy number: [id number] Group number: Authorization number: ED Provider: Patient's ED Provider: SHERICE PECK Primary Care Physician: Patient's PCP: BASIL FRIEDMAN MD PCP's Current Psychiatrist: none Chief Complaint: Psychiatric Related Complaint Patient's Quote: "I ran out of meds" Present Illness: Pt is 41 year old female, she arrived to ER with suicidal ideation, and stated "I ran out of my meds". "lexapro and abilify" She is diagnosed with MDD, and borderline traits. Her last admission was here on September 262016. She was expected to attend OP, she states she refuses IOP "its a trigger, I don't do group therapy". Pt states and I confirmed with our outpatient department she was expected to have an intake today, and a prescriber appointment on November 02. She states 'I was going to to tell them I was suicidal so I just figured I would come here instead". Patient having thoughts of cutting her wrists. Patient reports that she went to a hotel last night, she fill the bathtub with water and was going to cut her wrists with a sharp knife, but decided to come to the emergency department instead. Patient has had si attempts in past but recalls that was over a decade ago. She reports she has chronic intrusive thoughts of si. She reports cannabis use daily, and denies other illicit drugs tox screen positive for marijuana. Pt has a history of thinking she doesn't need the medication, and will stabilize in the hospital and decide not to follow up, she is currently had 2 appointments with a therapist at [facility], and her intake appointment today would be for med management. I made an outpatient appointment for her on November 10, 2016 at 6:15pm with Jesica Spear APRN, who was her last prescriber in [facility] at [address] [place] [phone]. Patient's Address: [address] [place] [address] Other Phone Number: Who Do You Live With? Family Family/Informants Interviewed: Spoke to her Father, and he stated "last night she didnt have 2 feet on the ground", and states he wished she would maintains tability for longer periods of time. "she tries to do it her own way". he was supportive and wants to be helpful if can be. Allergies - Coded Allergies: NO KNOWN ALLERGIES (07/15/16) Current Medications - Scheduled Medications Aripiprazole (Abilify) 15 MG TABLET 15 MG PO 0800 CLEAR THOUGHTS #14 TAB Prescribed by JESICA SPEAR APRN on 10/02/16 Last Taken: At an unknown date and time Escitalopram Oxalate (Lexapro) 10 MG TABLET 10 MG PO 0800 DEPRESSION AND ANXIETY #14 TAB Prescribed by JESICA SPEAR APRN on 10/02/16 Last Taken: At an unknown date and time Gabapentin 300 MG CAPSULE 300 MG PO AT BEDTIME DISCOMFORT & ANXIETY #14 CAP Prescribed by JESICA SPEAR APRN on 10/02/16 Insulin Aspart, Recombinant (Novolog Flexpen) 100 UNIT/ML INSULN.PEN 1 U SC TIDAC/HS DIABETES #1 U Prescribed by JESICA SPEAR APRN on 10/02/16 Insulin Detemir (Levemir Flextouch) 100 UNIT/ML (3 ML) INSULN.PEN 26 U SC BID DIABETES (Reported) Entered as Reported by JAKE SOTO on 10/29/16 0828 Multivitamin (One Daily Multivitamin) 1 EACH TABLET 1 TAB PO DAILY SUPPLEMENT #30 TAB Prescribed by JESICA SPEAR APRN on 10/02/16 Nicotine (Nicotine Patch) 21 MG/24 HOUR PATCH.TD24 21 MG TOP DAILY Smoking Cessation #30 PATCH Prescribed by JESICA SPEAR APRN on 10/02/16 Laboratory Results: Laboratory Tests 10/29/16 0836: Anion Gap 11, Estimated GFR > 60, BUN/Creatinine Ratio 13.8, Glucose 168 H, Calcium 8.9, Total Bilirubin 0.4, AST 23, ALT 32, Alkaline Phosphatase 72, Total Protein 7.0, Albumin 3.7, Globulin 3.3, Albumin/Globulin Ratio 1.1, CBC w Diff NO MAN DIFF REQ, RBC 4.42, MCV 80.0 L, MCH 26.6 L, RDW 15.7 H, MPV 8.2, Gran % 63.2, Lymphocytes % 31.0, Monocytes % 4.6, Eosinophils % 0.6, Basophils % 0.6, Absolute Granulocytes 5.0, Absolute Lymphocytes 2.4, Absolute Monocytes 0.4, Absolute Eosinophils 0.1, Absolute Basophils 0, PUBS MCHC 33.3, Serum Alcohol < 10.0 10/29/16 0834: Urine Opiates Screen < 100.00, Methadone Screen < 40, Barbiturate Screen < 60, Ur Phencyclidine Scrn < 6.00, Amphetamines Screen < 100, U Benzodiazepines Scrn < 85, Urine Cocaine Screen < 50, Urine Cannabis Screen > 80.00 H, Urine Test NEGATIVE Past History Past Medical History Neurological: NONE EENT: NONE Cardiovascular: HIGH CHOLESTEROL Respiratory: bronchitis Gastrointestinal: NONE Hepatic: NONE Renal: NONE Musculoskeletal: NONE Psychiatric: depression, substance abuse, ptsd Endocrine: diabetes Blood Disorders: NONE Cancer(s): NONE SHAPER MACHINE HAND/Reproductive: NONE Psychosocial History Strengths/Capabilities: has a master's degree in education, has a daughter and supportive family self presented in ED for help Physical Limitations (Interventions): none reported Psychiatric Treatment History Psych Treatment Psychiatric Treatment Yes Inpatient Treatment Yes Outpatient Treatment Yes ( OP) Location of Treatment [facility] and OP [facility] Reason for Treatment mood instability Dates of Treatment discharged from [facility] 10/02/16 Response to Treatment stops taking medications after a few weeks of discharge Diagnosis by History: Depression, PTSD, PMDD, R/O bipolar, cluster B traits Substance Use/Abuse History Drug Use/Abuse Substances Used/Abused Yes Substance Used/Abused Marijuana First Use unsure Last Used yesterday How much used/taken as much as I can How often regularly For how long years on and off Substance Abuse Treatment Substance Abuse Treatment Past Substance Abuse [place] No Current Mental Status Mental Status Orientation: Person, Place, Situation Affect: Blunted, Lonely, Variable Speech: WNL Neuro-vegetative: Concentration Poor, Helpless, Sleep Disturbance Appearance Appearance- Dress/Hygiene: WNL Behaviors Thought Process: Irrational Thought Content: WNL Memory: WNL Insight: Poor SI/HI Risk Assessment Past Suicidal Ideation/Attempts Yes Current Suicidal Ideation/Att Yes Past Homicidal Ideation/Att: No Current Homicidal Ideation/Attempts No Degree of Intent: Thoughts/No Intent Danger To: Self Risk Factors: history of suicide atmpts, SA/MH hospitalized, poor impulse control Lethality Ratin PTSD Checklist PTSD Done? patient declined ED Management Sitter: Yes Restraints: No DSM5/PS Stressors/Medical Prob Diagnosis' (DSM 5, Stressors, Medical): MDD F33.2 PTSD F43.10 borderline traits Current GAF: 38 Departure Disposition Psych Medical Clearance Date: 10/29/16 Medically Cleared at: 1800 Time Started: 1800 Time Ended: 1900 Psychiatrist Consulted: Edita JOSE,Edward Date Disposition Established: 10/29/16 Plan for Disposition - Modality: Hold Over Rationale for Disposition: Consulted with Dr. michelle pt may benefit from meeting with previous CPS provider or getting additional feedback, hold over. Pt is here for medication/ si is intermittent. re eval for further disposition. AN outpatient appt was made in case it can be useful 11/11/16 at 6:15 with Vonda Spear. Additional Instructions: AN outpatient appt was made in case it can be useful 11/11/16 at 6:15 with Vonda Spear [address] Jaswant FRIEDMAN MD,BASIL (PCP/Family)
[2016-10-30] MEDS ORDERED: NEURONTIN300 M1 PO (09:10)
[2016-10-30] MEDS ORDERED: LEXAPRO10 M1 PO (09:10)
[2016-10-30] MEDS ORDERED: ABILIFY15 M1 PO (09:10)
[2016-10-30 10:09] VITALS: BP 124/78
== END 2016-10-30 10:12 ==
LOC: ERH 07:50
PROVIDERS: Physician Assistant
DX: F32.9 Major depressive disorder, single episode, unspecified (principal); F12.159 Cannabis abuse with psychotic disorder, unspecified
CPT/HCPCS: 80307; 81025; 96372; G0463; G0480

== ENCOUNTER 2018-02-05 14:46 | Emergency (ER) | payer OTHER ==
[~2018-02-05] VITALS: Ht 172.7 cm; Wt 113.4 kg
[~2018-02-05 14:46] MED LIST changes: +CYCLOBENZAPRINE5 M2 PO; +NEURONTIN300 M1 PO
[2018-02-05 15:36] LABS: ABSOLUTE BASOPHIL COUNT 0 /CUMM (0.0-0.2); ABSOLUTE EOSINOPHIL COUNT 0.1 /CUMM (0.0-0.7); ABSOLUTE LYMPH COUNT 3.5 /CUMM (1.2-3.4); ABSOLUTE MONOCYTE COUNT 0.5 /CUMM (0.10-0.60); BASOPHIL % 0.4 % (0.0-2.0); EOSINOPHIL % 0.6 % (0-5); HEMATOCRIT 40.9 % (37-47); MEAN CORPUSCULAR HGB 26.9 PG (27.0-31.0); MEAN CORPUSCULAR HGB CONC 33.4 G/DL (33.0-37.0); MEAN CORPUSCULAR VOLUME 80.5 FL (81.0-99.0); MEAN PLATELET VOLUME 8.3 FL (7.4-10.4); PLATELET COUNT 260 /CUMM (130-400); RBC DISTRIBUTION WIDTH 15.1 % (11.5-14.5); RED BLOOD CELL CT 5.08 /CUMM (4.20-5.40); WHITE BLOOD CELL COUNT 11.2 /CUMM (4.8-10.8)
--- NOTE | 2018-02-05 15:37 | ED PSYCHIATRIC COMPLAINT ---
History of Present Illness General Chief Complaint: Psychiatric Related Complaint Stated Complaint: +SI Source: patient, family, old records Exam Limitations: no limitations Vital Signs & Intake/Output Vital Signs & Intake/Output Vital Signs Date Time Temp Pulse Resp B/P B/P Pulse O2 O2 Flow FiO2 Mean Ox Delivery Rate 02/06 1053 98.6 95 18 130/78 98 Room Air Room Air Allergies Coded Allergies: NO KNOWN ALLERGIES (07/15/16) Reconcile Medications Aripiprazole (Abilify) 15 MG TABLET 1 TAB PO DAILY PSYCH Aripiprazole (Abilify) 15 MG TABLET 15 MG PO 0800 CLEAR THOUGHTS Cyclobenzaprine HCl 5 MG TABLET 1 TAB PO TIDPRN PRN back pain Escitalopram Oxalate (Lexapro) 10 MG TABLET 1 TAB PO DAILY ANXIETY Escitalopram Oxalate (Lexapro) 10 MG TABLET 10 MG PO 0800 DEPRESSION AND ANXIETY Gabapentin (Neurontin) 300 MG CAPSULE 1 CAP PO QHS ANXIETY Gabapentin 300 MG CAPSULE 300 MG PO AT BEDTIME DISCOMFORT & ANXIETY Insulin Aspart, Recombinant (Novolog Flexpen) 100 UNIT/ML INSULN.PEN 1 U SC TIDAC/HS DIABETES Prescription being called in by Dr. Sanders. Follow directions as per Dr. Sanders. Insulin Detemir (Levemir Flextouch) 100 UNIT/ML (3 ML) INSULN.PEN 26 U SC BID DIABETES (Reported) Multivitamin (One Daily Multivitamin) 1 EACH TABLET 1 TAB PO DAILY SUPPLEMENT Nicotine (Nicotine Patch) 21 MG/24 HOUR PATCH.TD24 21 MG TOP DAILY Smoking Cessation Triage Note: PT TO ED C/O SEVERE DEPRESSION X A FEW WEEKS. PT ON MEDS FOR DEPRESSION, STATES SHE IS COMPLIANT WITH MEDS. PT STATES SI, "I WOULD SLIT MY WRISTS". H/O SLITTING WRISTS IN THE PAST, ABOUT 1 YEAR AGO PER PT. DENIES HI. DENIES ETOH OR DRUG USE. TAKEN TO [facility] FOR EVAL. Triage Nurses Notes Reviewed? yes : No Patient currently breastfeeds: No HPI: Patient presents to the emergency department with suicidal ideation with plans to slit her wrists. Patient states she does have a history of prior attempts in the past however has not tried anything recently. She denies any homicidal ideations. She denies any hallucinations. Patient has been compliant with her medications. (Niko JOSE,James Steiner) General Source: patient (En Garrido DO) Past History Travel History Traveled to [place] past 21 day No Medical History Any Pertinent Medical History? see below for history Neurological: NONE EENT: NONE Cardiovascular: hyperlipidemia Respiratory: bronchitis Gastrointestinal: NONE Hepatic: NONE Renal: NONE Musculoskeletal: NONE Psychiatric: depression, substance abuse, ptsd Endocrine: diabetes Blood Disorders: NONE Cancer(s): NONE NURSING SUPPORT WORKER/Reproductive: NONE History of MRSA: No History of VRE: No History of CDIFF: No Surgical History Surgical History: non-contributory Psychosocial History Who do you live with Family What is your primary language Indonesian Tobacco Use: Current Daily Use Daily Tobacco Use Amount/Type: => 5 Cigarettes daily ETOH Use: denies use Illicit Drug Use: denies illicit drug use Family History Family History, If Any: MOTHER Relation not specified for: FH: diabetes mellitus Hx Contributory? No (Niko JOSE,James Steiner) Review of Systems Review of Systems Constitutional: Reports: no symptoms. EENTM: Reports: no symptoms. Respiratory: Reports: no symptoms. Cardiovascular: Reports: no symptoms. GI: Reports: no symptoms. Genitourinary: Reports: no symptoms. Musculoskeletal: Reports: no symptoms. Skin: Reports: no symptoms. Neurological/Psychological: Reports: see HPI, depressed. Hematologic/Endocrine: Reports: no symptoms. Immunologic/Allergic: Reports: no symptoms. All Other Systems: Reviewed and Negative (Niko JOSE,James Steiner) Physical Exam Physical Exam General Appearance: well developed/nourished, mild distress Head: atraumatic Eyes: Bilateral: PERRL, EOMI. Ears, Nose, Throat: normal pharynx, normal ENT inspection, hearing grossly normal Neck: normal inspection, supple Respiratory: normal breath sounds Cardiovascular: regular rate/rhythm Gastrointestinal: soft, non-tender Extremities: normal range of motion Neurological/Psychiatric: no motor/sensory deficits, awake, alert, calm, oriented x 3 Appearance/Memory/Insight: appropriate appearance, appropriate insight Behavoir/Eye Contact/Speech: cooperative, increased rate of speech, normal speech Thoughts/Hallucinations: normal thought pattern Skin: intact, normal color, warm/dry SAD PERSONS Done? cRISIS CONSULT OBTAINED (Niko JOSE,James Steiner) Progress Differential Diagnosis: drug intoxication, drug overdose, drug withdrawal, electrolyte abnormality Plan of Care: Orders Procedure Date/time Status ED CRISIS PSYCH CONSULT 02/06 1008 Active Comments: Patient has been seen and evaluated with appraiser auditor. Patient is stable for discharge at this time. (Niko JOSE,James Steiner) Departure Departure Disposition: HOME OR SELF CARE Condition: Stable Clinical Impression Primary Impression: Depression Referrals: Patient Has No Primary Care Dr (PCP/Family) Additional Instructions: Please follow up as per recommendations of the appraiser auditor. Call 211 or return immediately to the emergency department for any concerns of harming yourself, anyone else or for any other concerns. Departure Forms: Customer Survey General Discharge Information (Niko JOSE,James Steiner) Departure Comments 02/06/18 The patient was signed out to me by Dr. Pope. She is pending crisis disposition. The patient will be signed out to Dr. Pope at 7 AM. (En Garrido DO) ED CRISIS PSYCH CONSULT 02/06 1008 Active Regular Diet 02/05 D Active ED CRISIS PSYCH CONSULT 02/05 1513 Active Continuous Observation Monitor 02/05 1456 Active URINE DRUGS OF ABUSE 02/05 1456 Complete URINE 02/05 1456 Complete ETHANOL 02/05 1456 Complete COMPREHENSIVE METABOLIC PANEL 02/05 1456 Complete CBC WITHOUT DIFFERENTIAL 02/05 1456 Complete Current Medications Sig/Fatmata Start time Last Medication Dose Stop Time Status Admin Aripiprazole 15 MG DAILY 02/06 09 UNVr 02/06 (Abilify) 0954 Escitalopram Oxalate 10 MG DAILY 02/06 09 UNVr 02/06 (Lexapro) 0954 Nicotine 2 MG Q2P PRN 02/05 184 UNVr 02/06 (Nicotine) 1000 Trazodone HCl 50 MG AT BEDTIME NEED.. 02/05 1845 UNVr 02/05 (Desyrel) 1857 Laboratory Tests 02/05/18 1524: Anion Gap 9, Estimated GFR > 60, BUN/Creatinine Ratio 12.5, Glucose 184 H, Calcium 9.7, Total Bilirubin 0.4, AST 19, ALT 25, Alkaline Phosphatase 69, Total Protein 7.7, Albumin 4.3, Globulin 3.4, Albumin/Globulin Ratio 1.3, CBC w Diff NO MAN DIFF REQ, RBC 5.08, MCV 80.5 L, MCH 26.9 L, MCHC 33.4, RDW 15.1 H, MPV 8.3, Gran % 63.0, Lymphocytes % 31.3, Monocytes % 4.7, Eosinophils % 0.6, Basophils % 0.4, Absolute Granulocytes 7.0 H, Absolute Lymphocytes 3.5 H, Absolute Monocytes 0.5, Absolute Eosinophils 0.1, Absolute Basophils 0, Serum Alcohol < 10.0 02/05/18 1523: Urine Opiates Screen < 100, Methadone Screen < 40, Barbiturate Screen < 60, Ur Phencyclidine Scrn < 6.00, Amphetamines Screen < 100, U Benzodiazepines Scrn < 85, Urine Cocaine Screen < 50, Urine Cannabis Screen 46.00, Urine Test NEGATIVE (En Garrido DO) Departure Departure Disposition: HOME OR SELF CARE Condition: Stable Clinical Impression Primary Impression: Depression Referrals: Patient Has No Primary Care Dr (PCP/Family) Additional Instructions: Please follow up as per recommendations of the appraiser auditor. Call 211 or return immediately to the emergency department for any concerns of harming yourself, anyone else or for any other concerns. Departure Forms: Customer Survey General Discharge Information (Niko JOSE,James Steiner) Departure Comments 02/06/18 The patient was signed out to me by Dr. Pope. She is pending crisis disposition. The patient will be signed out to Dr. Pope at 7 AM. (En Garrido DO)
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
[2018-02-06 10:53] VITALS: BP 130/78
== END 2018-02-06 10:52 ==
LOC: ERH 14:46
PROVIDERS: Physician Assistant Medical
DX: F32.9 Major depressive disorder, single episode, unspecified (principal)
CPT/HCPCS: 80307; 81025; G0463; G0480